=== PATIENT | male | born 1945 | race Caucasian/White ===

== ENCOUNTER 2019-04-02 10:28 | Emergency (ER) | payer OTHER ==
--- OUTSIDE RECORDS SUMMARY | 2019-04-02 10:49 | XMS REPORT | Clinical Summary ---
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 atorvastatin Take 80 mg by mouth 0 Active (LIPITOR) 80 MG nightly. tablet ezetimibe (ZETIA) Take 10 mg by mouth 0 Active 10 mg tablet nightly. ticagrelor Take 90 mg by mouth 0 Active (BRILINTA) 90 mg 2 (two) times a tablet day. alendronate Take 70 mg by mouth 0 Active (FOSAMAX) 70 MG every 7 days. On tablet .Take in the morning with a full glass of water on an empty stomach, do NOT take anything else by mouth or lie down for the next 30 min. CALCIUM CITRATE Take 1,200 mg by 0 Active ORAL mouth daily. multivit-min/folic/ Take 1 tablet by 0 Active vit K/lycop (MEN'S mouth daily. MULTIVITAMIN ORAL) docosahexanoic Take 1 capsule by 0 Active acid/epa (FISH OIL mouth daily. ORAL) acetaminophen Take 500 mg by 0 Active (TYLENOL) 500 MG mouth every 6 (six) tablet hours as needed for mild pain (back pain). aspirin (ECOTRIN) Take 81 mg by mouth 0 Active 81 MG enteric daily. coated tablet metoprolol Take 25 mg by mouth 0 Active succinate XL 2 (two) times a (TOPROL-XL) 25 mg day. 24 hr tablet carbidopa-levodopa Take 1 tablet by 0 Active (SINEMET) 25-100 mg mouth 2 (two) times per tablet a day. clopidogrel Take 75 mg by mouth 0 Discontinued (PLAVIX) 75 mg daily. 019 tablet gabapentin TK 1 C PO hs 5 Discontinued (NEURONTIN) 100 mg 8 019 capsule ibuprofen ibuprofen 600 mg 0 Discontinued (ADVIL,MOTRIN) 600 tablet 019 MG tablet aspirin (ECOTRIN) aspirin 81 mg tablet,delayed release 0 Discontinued 81 MG enteric Take 1 tablet every day by oral route. 019 coated tablet amoxicillin Take 1 capsule 0 Discontinued (AMOXIL) 500 MG every 8 hours by 019 capsule oral route for 7 days. cyclobenzaprine cyclobenzaprine 10 0 Discontinued (FLEXERIL) 10 mg mg tablet 019 tablet acetaminophen-codei Take 1 tablet by 15 tablet 0 ne (TYLENOL WITH mouth every 6 (six) 9 019 CODEINE #3) 300-30 hours as needed for mg per tablet moderate pain for up to 7 days. phenazopyridine Take 1 tablet (100 12 tablet 0 (PYRIDIUM) 100 MG mg total) by mouth 9 019 tablet 3 (three) times a day as needed for bladder spasms for up to 3 days. phenazopyridine Take 1 tablet (200 30 tablet 0 11/04/ (PYRIDIUM) 200 MG mg total) by mouth 9 019 tablet 3 (three) times a day for 3 days. gabapentin Take 100 mg by 0 Discontinued (NEURONTIN) 100 mg mouth 3 (three) 019 capsule times a day. metoprolol tartrate Take 25 mg by mouth 0 Discontinued (LOPRESSOR) 25 mg 2 (two) times a 019 tablet day. vitamin E acetate Take 1 tablet by 0 Discontinued (VITAMIN E ORAL) mouth daily. 019 phenazopyridine Take 1 tablet (200 30 tablet 0 03/19/ (PYRIDIUM) 200 MG mg total) by mouth 9 019 tablet 3 (three) times a day as needed for bladder spasms for up to 10 days. traMADol (ULTRAM) Take 1 tablet (50 30 tablet 0 50 mg tablet mg total) by mouth 9 019 every 6 (six) hours as needed for moderate pain for up to 10 days. Active Problems Problem Noted Date UTI (urinary tract infection) 03/12/2019 Chest pain at rest 01/29/2019 Hematuria 01/08/2018 Gross hematuria 2017 General weakness 10/25/2017 Prostate cancer 02/12/2017 Stenosis of carotid artery 12/28/2016 Encounters Date Type Specialty Care Team Description 03/18/2019 Surgery Urology Jana, CYSTOSCOPY, LEFT MD Dash RETROGRADE PYELOGRAM, LEFT URETERAL STENT EXCHANGE 03/18/2019 Anesthesia Event Urology Yoselin Hare MD 03/12/2019 - Hospital Encounter General Internal Jana, Acute cystitis without 03/19/2019 Medicine MD Dash hematuria 03/12/2019 Hospital Encounter Radiology Jana, Calculus of kidney MD Dash 03/12/2019 Hospital Encounter Radiology Jana, Hydronephrosis, MD Dash unspecified hydronephrosis type 03/12/2019 Orders Only Urology Jana, Acute cystitis without MD Dash hematuria (Primary Dx) 03/12/2019 Orders Only Urology Jana, Acute cystitis without MD Dash hematuria (Primary Dx) 03/12/2019 Transcribe Orders Access Butchon, Calculus of kidney MD Dash (Primary Dx) 03/12/2019 Transcribe Orders Access Jana, Hydronephrosis, MD Dash unspecified hydronephrosis type (Primary Dx) 02/25/2019 Anesthesia Event Urology Fela Layton APRN 02/25/2019 Surgery Urology Jana, CYSTOSCOPY, LEFT STENT MD Dash EXCHANGE 02/25/2019 Hospital Encounter Urology Dash Bates MD 02/20/2019 Pre-Admit Testing Pre-Admission Jana Preop examination Appointment Testing MD Dash (Primary Dx) 02/11/2019 Hospital Encounter Radiology Kar, Parkinson disease Avery Mcintyre MD ([facility]) 02/05/2019 Transcribe Orders Radiology Ryley Lakhani disease Avery Mcintyre MD ([facility]) (Primary Dx) 01/29/2019 - Hospital Encounter Cardiology Eadeh, Kia, Chest pain at rest (Primary Dx); 01/31/2019 Unstable angina (HCC) Monica Wynn MD 11/05/2018 Hospital Encounter Radiology Steven Bates MD 11/04/2018 Anesthesia Event Urology Martinez Moncada MD 11/04/2018 Surgery Urology Jana, CYSTOSCOPY, LEFT MD Dash FLEXIBLE URETEROSCOPY, LEFT STENT EXCHANGE 11/04/2018 Hospital Encounter Urology Dash Bates MD 10/22/2018 Anesthesia Event Urology Aisha Clinton, SYNTHETIC FILAMENT SPINNER 10/22/2018 Surgery Urology Jana, CYSTOSCOPY, LEFT MD Dash FLEXIBLE URETEROSCOPY, LEFT RGP AND LEFT STENT INSERTION 10/22/2018 Hospital Encounter Urology Dash Bates MD 10/17/2018 Pre-Admit Testing Pre-Admission Jana Preop examination ( Primary Dx); Appointment Testing MD Dash History of diabetes mellitus after 04/01/2018 Immunizations Name Dates Previously Given Next Due Pneumococcal Conjugate 13-Valent 02/14/2017 Family History Medical History Relation Name Comments Cancer Father Emphysema Father Heart disease Father Lung cancer Father Prostate cancer Father Rheumatic fever Father Cirrhosis Mother Relation Name Status Comments Father Mother Social History Tobacco Use Types Packs/Day Years Used Date Former Smoker Cigarettes 2 40 Quit: 2002 Smokeless Tobacco: Never Used Alcohol Use Drinks/Week oz/Week Comments No Sex Assigned at Date Recorded Not on file Job Start Date Occupation Industry Not on file Not on file Not on file Travel History Travel Start Travel End No recent travel history available. Last Filed Vital Signs Vital Sign Reading Time Taken Blood Pressure 140/67 03/19/2019 7:20 AM CDT Pulse 60 03/19/2019 7:30 AM CDT Temperature 36.8 C (98.3 F) 03/19/2019 7:20 AM CDT Respiratory Rate 18 03/19/2019 7:20 AM CDT Oxygen Saturation 96% 03/19/2019 7:20 AM CDT Inhaled Oxygen Concentration - - Weight 80.6 kg (177 lb 9.6 oz) 03/19/2019 6:15 AM CDT Height 177.8 cm (5' 10") 03/12/2019 7:42 PM CDT Body Mass Index 25.48 03/12/2019 7:42 PM CDT Plan of Treatment Health Maintenance Due Date Last Done Comments COLONOSCOPY SCREENING 1997 SHINGLES VACCINES (#1) 1997 INFLUENZA VACCINE 05/08/2019 65+ PNEUMOCOCCAL VACCINE Completed 02/14/2017, 02/13/2017, 10/08/2016 Implants Implanted Type Area Dipper Clock And Watch Hands Device Shelf Model / Serial Identifier Expiration / Lot Date Device Vasclr Clsr Baln Cath 10ml Lkng Syr 6fr 7fr Mynxgrip - [id number] Cardiovascular N/A: CARDINAL 12/05/2018 [id number] / Implanted: 12/28/2016 (Quantity not on file) Implants N/A [facility] / [id number] Stent Coronary Bare Metal Rebel Otw 3.00 Mm X 16 Mm - [id number] Coronary Stents N/A: BSC 04/06/2018 [id number] / Implanted: 12/28/2016 (Quantity not on file) N/A INTERVENTIONAL / CARDIOLOGY [id number] Bard Mesh Perfix Plugs Large Perfix Plug,1.6&Quot; X 1.90&Quot; (4.1cm X 4.8cm ) - [id number] IPM GRAFTS Right: Scotty [id number] / Implanted: Qty: 1 on 02/12/2017 by Dash Bates MD [employer] / Clip Ligtng Hem-O-Braxton Endoscpc Aplr Ply Lg - [id number] Surgical N/A: WECK [employer]URE [id number] / Implanted: Qty: 3 on 02/12/2017 by Dash Bates MD Implants; N/A SYSTEMS / Expanders; Extenders; Surgical Wires Kit Selnt Fibrin Humn Hmsts Surgy 5ml Evicel - [id number] Surgical N/A: ETHICON - [id number] / Implanted: Qty: 1 on 02/12/2017 by Dash Bates MD Implants; N/A / Expanders; Extenders; Surgical Wires Catheter Uretl 6/10fr 50cm Flx-Tp Dlmn Std Accs - [id number] Surgical N/A: [facility] [id number] / Implanted: Qty: 1 on 02/26/2018 by Dash Bates MD Implants; N/A / Expanders; Extenders; Surgical Wires Plug Hrnia Rpr Perfix Med 1.3x1.55in - [id number] Surgical Mesh Left: [employer] 06/04/2021 [id number] / Implanted: Qty: 1 on 02/12/2017 by Devora Chavira MD or Tissue Groin / [employer] Mesh Hrnia Rpr 2x12in Flat Shet Ppe Soft-Tissue Ventrl - [id number] Surgical Mesh N/A: [employer] 04/04/2021 [id number] / Implanted: Qty: 1 on 02/12/2017 by Devora Chavira MD or Tissue Groin / [employer] Stent Uretl Polrs Loop 6fr 26cm W/O Gw - [id number] Surgical Stents N/A: [facility] 07/09/2021 [id number] / Implanted: Qty: 1 on 10/22/2018 by Dash Bates MD N/A / [id number] Stent Uretl Filifm Dbl Pigtl 6fr 26cm Marie Blk - [id number] Surgical Stents N/ A: [facility] 08/15/2021 [id number] / Implanted: Qty: 1 on 11/04/2018 by Dash Bates MD N/A / [id number] Stent Uretl Filifm Dbl Pigtl 6fr 28cm Marie Blk - [id number] Surgical Stents N/ A: [facility] 12/27/2020 [id number] / Implanted: Qty: 1 on 02/25/2019 by Dash Bates MD N/A / [id number] Stent Uretl Filifm Dbl Pigtl 6fr 24cm Marie Blk - [id number] Surgical Stents N/ A: [facility] 01/30/2022 [id number] / Implanted: Qty: 1 on 03/18/2019 by Dash Bates MD N/A / [id number] Catheter Uretl 6fr 70cm Opn-End Rtrgd Pyelogram - [id number] [facility]rological [facility] [id number] / Implanted: Qty: 1 on 01/22/2018 by Dash Bates MD Implants or / Sets Stent Uretl S-Flx Kwrt Rtr-Inj Mltlen 6fr 22-32cm - [id number] Urological Left: [facility] 06/19/2020 [id number] / Implanted: Qty: 1 on 01/22/2018 by Dash Bates MD Implants or Ureter, / Sets [place] [id number] Stent Uretl S-Flx Kwrt Rtr-Inj Mltlen 6fr 22-32cm - [id number] Urological N/A : [facility] 01/15/2021 [id number] / Implanted: 02/26/2018 (Quantity not on file) Implants or N/A / Sets [id number] Procedures Procedure Name Priority Date/Time Associated Diagnosis Comments POC GLUCOSE Routine 03/19/2019 7:21 Results for this AM CDT procedure are in the results section. ESTIMATED GFR Routine 03/19/2019 6:25 Results for this AM CDT procedure are in the results section. BASIC METABOLIC Routine 03/19/2019 6:25 Results for this PANEL AM CDT procedure are in the results section. ESTIMATED GFR Routine 03/19/2019 4:00 Results for this AM CDT procedure are in the results section. BASIC METABOLIC Routine 03/19/2019 4:00 Results for this PANEL AM CDT procedure are in the results section. POC GLUCOSE Routine 03/18/2019 8:47 Results for this PM CDT procedure are in the results section. POC GLUCOSE Routine 03/18/2019 4:13 Results for this PM CDT procedure are in the results section. POC GLUCOSE Routine 03/18/2019 2:01 Results for this PM CDT procedure are in the results section. FL < 1 HOUR Routine 03/18/2019 1:47 Results for this PM CDT procedure are in the results section. CYSTO STENT 03/18/2019 1:30 Hydronephrosis INSERTION PM CDT Special Needs POSSIBLE EXTENDED RECOVERY NEEDED POC GLUCOSE Routine 03/18/2019 12:32 Results for this PM CDT procedure are in the results section. POC GLUCOSE Routine 03/18/2019 7:16 Results for this AM CDT procedure are in the results section. HC COMPLETE BLD COUNT Routine 03/18/2019 5:50 Results for this W/AUTO DIFF AM CDT procedure are in the results section. ESTIMATED GFR Routine 03/18/2019 5:50 Results for this AM CDT procedure are in the results section. BASIC METABOLIC PANEL Routine 03/18/2019 5:50 Results for this AM CDT procedure are in the results section. POC GLUCOSE Routine 03/18/2019 5:47 Results for this AM CDT procedure are in the results section. POC GLUCOSE Routine 03/17/2019 9:09 Results for this PM CDT procedure are in the results section. POC GLUCOSE Routine 03/17/2019 5:17 Results for this PM CDT procedure are in the results section. POC GLUCOSE Routine 03/17/2019 12:34 Results for this PM CDT procedure are in the results section. POC GLUCOSE Routine 03/17/2019 7:50 Results for this AM CDT procedure are in the results section. POC GLUCOSE Routine 03/16/2019 8:59 Results for this PM CDT procedure are in the results section. POC GLUCOSE Routine 03/16/2019 5:36 Results for this PM CDT procedure are in the results section. POC GLUCOSE Routine 03/16/2019 11:27 Results for this AM CDT procedure are in the results section. POC GLUCOSE Routine 03/16/2019 7:14 Results for this AM CDT procedure are in the results section. POC GLUCOSE Routine 03/15/2019 10:24 Results for this PM CDT procedure are in the results section. POC GLUCOSE Routine 03/15/2019 5:31 Results for this PM CDT procedure are in the results section. POC GLUCOSE Routine 03/15/2019 11:48 Results for this AM CDT procedure are in the results section. POC GLUCOSE Routine 03/15/2019 7:45 Results for this AM CDT procedure are in the results section. ESTIMATED GFR Routine 03/15/2019 2:45 Results for this AM CDT procedure are in the results section. HEMOGLOBIN A1C Routine 03/15/2019 2:45 Results for this AM CDT procedure are in the results section. BASIC METABOLIC PANEL Routine 03/15/2019 2:45 Results for this AM CDT procedure are in the results section. POC GLUCOSE Routine 03/14/2019 9:06 Results for this PM CDT procedure are in the results section. POC GLUCOSE Routine 03/14/2019 5:23 Results for this PM CDT procedure are in the results section. POC GLUCOSE Routine 03/14/2019 11:34 Results for this AM CDT procedure are in the results section. ESTIMATED GFR Routine 03/14/2019 3:56 Results for this AM CDT procedure are in the results section. HC COMPLETE BLD COUNT Routine 03/14/2019 3:56 Results for this W/AUTO DIFF AM CDT procedure are in the results section. BASIC METABOLIC PANEL Routine 03/14/2019 3:56 Results for this AM CDT procedure are in the results section. GRAM STAIN Routine 03/13/2019 2:17 Results for this AM CDT procedure are in the results section. URINE CULTURE Routine 03/13/2019 2:17 Results for this AM CDT procedure are in the results section. URINALYSIS SCREEN AND Routine 03/13/2019 1:50 Results for this MICROSCOPY, WITH AM CDT procedure are in REFLEX TO CULTURE the results section. CBC HEMOGRAM Routine 03/12/2019 9:03 Results for this PM CDT procedure are in the results section. ESTIMATED GFR Routine 03/12/2019 6:49 Results for this PM CDT procedure are in the results section. COMPREHENSIVE Routine 03/12/2019 6:49 Results for this METABOLIC PANEL PM CDT procedure are in the results section. US RENAL Routine 03/12/2019 4:49 Calculus of kidney Results for this PM CDT procedure are in the results section. XR KUB KIDNEY URETER Routine 03/12/2019 1:49 Hydronephrosis, Results for this BLADDER PM CDT unspecified procedure are in hydronephrosis type the results section. POC GLUCOSE Routine 02/25/2019 2:21 Results for this PM CDT procedure are in the results section. IN AN ELECTIVE Routine 02/25/2019 1:45 SUPRAGLOTTIC AIRWAY PM CDT Procedure Note - Yoni Salomon MD - 02/25/2019 1:45 PM CDT Airway Date/Time: 02/25/2019 1:42 PM Performed by: Yoni Salomon MD Authorized by: Yoni Salomon MD Location: OR Urgency: Elective Difficult Airway: No Performed by: anesthesiologist Preoxygenated with 100% O2: Yes C-spine Precautions Maintained Throughout: Yes Mask Ventilation: Easy mask Final Airway Type: Supraglottic airway Final LMA: I-Gel LMA Size: 4 Number of Attempts at Approach: 1 CYSTO STENT INSERTION 02/25/2019 1:00 Hydronephrosis PM CDT POC GLUCOSE Routine 02/25/2019 11:14 Results for this AM CDT procedure are in the results section. URINE CULTURE Routine 02/20/2019 8:11 Results for this PM CDT procedure are in the results section. GRAM STAIN Routine 02/20/2019 8:11 Results for this PM CDT procedure are in the results section. ECG PRE/POST OP Routine 02/20/2019 5:18 Preop examination Results for this PM CDT procedure are in the results section. ESTIMATED GFR Routine 02/20/2019 4:58 Results for this PM CDT procedure are in the results section. URINALYSIS SCREEN AND Routine 02/20/2019 4:58 Preop examination Results for this MICROSCOPY, WITH PM CDT procedure are in REFLEX TO CULTURE the results section. CBC HEMOGRAM Routine 02/20/2019 4:58 Preop examination Results for this PM CDT procedure are in the results section. TYPE AND SCREEN Routine 02/20/2019 4:58 Preop examination Results for this PM CDT procedure are in the results section. PARTIAL THROMBOPLASTIN Routine 02/20/2019 4:58 Preop examination Results for this TIME (PTT) PM CDT procedure are in the results section. PROTHROMBIN TIME WITH Routine 02/20/2019 4:58 Preop examination Results for this INR PM CDT procedure are in the results section. COMPREHENSIVE Routine 02/20/2019 4:58 Preop examination Results for this METABOLIC PANEL PM CDT procedure are in the results section. NM BRAIN SPECT W I 123 Routine 02/11/2019 1:22 Parkinson disease Results for this DATSCAN PM CDT (HCC) procedure are in the results section. POC GLUCOSE Routine 01/31/2019 11:51 Results for this AM CDT procedure are in the results section. POC GLUCOSE Routine 01/31/2019 7:40 Results for this AM CDT procedure are in the results section. ANTI XA, Timed 01/31/2019 4:20 Results for this UNFRACTIONATED AM CDT procedure are in the results section. CBC HEMOGRAM Routine 01/31/2019 4:20 Results for this AM CDT procedure are in the results section. ESTIMATED GFR Routine 01/31/2019 4:00 Results for this AM CDT procedure are in the results section. BASIC METABOLIC PANEL Routine 01/31/2019 4:00 Results for this AM CDT procedure are in the results section. POC GLUCOSE Routine 01/30/2019 9:15 Results for this PM CDT procedure are in the results section. ANTI XA, Routine 01/30/2019 8:45 Results for this UNFRACTIONATED PM CDT procedure are in the results section. POC GLUCOSE Routine 01/30/2019 5:58 Results for this PM CDT procedure are in the results section. ANTI XA, Routine 01/30/2019 1:30 Results for this UNFRACTIONATED PM CDT procedure are in the results section. POC GLUCOSE Routine 01/30/2019 12:19 Results for this PM CDT procedure are in the results section. TROPONIN Routine 01/30/2019 8:44 Results for this AM CDT procedure are in the results section. ECG 12-LEAD STAT 01/30/2019 8:14 Results for this AM CDT procedure are in the results section. POC GLUCOSE Routine 01/30/2019 7:55 Results for this AM CDT procedure are in the results section. CBC HEMOGRAM Routine 01/30/2019 5:45 Results for this AM CDT procedure are in the results section. ESTIMATED GFR Routine 01/30/2019 4:00 Results for this AM CDT procedure are in the results section. BASIC METABOLIC PANEL Routine 01/30/2019 4:00 Results for this AM CDT procedure are in the results section. ANTI XA, Routine 01/30/2019 3:45 Results for this UNFRACTIONATED AM CDT procedure are in the results section. TROPONIN Timed 01/30/2019 12:00 Results for this AM CDT procedure are in the results section. ECG 12-LEAD Routine 01/29/2019 9:40 Results for this PM CDT procedure are in the results section. POC GLUCOSE Routine 01/29/2019 9:20 Results for this PM CDT procedure are in the results section. ANTI XA, Routine 01/29/2019 8:20 Results for this UNFRACTIONATED PM CDT procedure are in the results section. PARTIAL THROMBOPLASTIN Routine 01/29/2019 8:20 Results for this TIME (PTT) PM CDT procedure are in the results section. TROPONIN Timed 01/29/2019 6:00 Results for this PM CDT procedure are in the results section. XR CHEST 1 VW PORTABLE Routine 01/29/2019 5:23 Results for this PM CDT procedure are in the results section. POC GLUCOSE Routine 01/29/2019 5:07 Results for this PM CDT procedure are in the results section. ECHOCARDIOGRAM 2D Routine 01/29/2019 4:30 Results for this COMPLETE W MMODE PM CDT procedure are in SPECTRAL COLOR DOPPLER the results (68519) section. IN CRITICAL CARE, E/M Routine 01/29/2019 1:09 Results for this 30-74 MINUTES PM CDT procedure are in the results section. ESTIMATED GFR STAT 01/29/2019 11:46 Results for this AM CDT procedure are in the results section. PROTHROMBIN TIME WITH STAT 01/29/2019 11:46 Results for this INR AM CDT procedure are in the results section. PARTIAL THROMBOPLASTIN STAT 01/29/2019 11:46 Results for this TIME (PTT) AM CDT procedure are in the results section. B NATRIURETIC PEPTIDE STAT 01/29/2019 11:46 Results for this AM CDT procedure are in the results section. TROPONIN STAT 01/29/2019 11:46 Results for this AM CDT procedure are in the results section. COMPREHENSIVE STAT 01/29/2019 11:46 Results for this METABOLIC PANEL AM CDT procedure are in the results section. HC COMPLETE BLD COUNT STAT 01/29/2019 11:46 Results for this W/AUTO DIFF AM CDT procedure are in the results section. ECG 12-LEAD STAT 01/29/2019 11:22 Results for this AM CDT procedure are in the results section. POC GLUCOSE Routine 11/04/2018 9:37 Results for this AM YARN WEIGHER procedure are in the results section. FL < 1 HOUR Routine 11/04/2018 9:23 Pain Results for this AM [facility]ARN WEIGHER procedure are in the results section. IN AN ELECTIVE Routine 11/04/2018 8:49 SUPRAGLOTTIC AIRWAY AM YARN WEIGHER Procedure Note - Isaac Quevedo CRNA - 11/04/2018 8:49 AM YARN WEIGHER ANESTHESIA INTUBATION Date/Time: 11/04/2018 8:49 AM Performed by: Isaac Quevedo CRNA Authorized by: Martinez Moncada MD Location: OR Urgency: Elective Difficult Airway: No Resident/PRESSURE STEAMER TENDER/AA: Isaac Quevedo CRNA Performed by: resident/PRESSURE STEAMER TENDER/AA Preoxygenated with 100% O2: Yes C-spine Precautions Maintained Throughout: Yes Mask Ventilation: Not attempted Final Airway Type: Supraglottic airway Final LMA: Classic LMA Size: 5 Number of Attempts at Approach: 1 CYSTO WITH URETEROSCOPY 11/04/2018 8:30 AM YARN WEIGHER Calculus of ureter Special Needs TF 0830 REQ 0730 START POC GLUCOSE Routine 11/04/2018 6:51 AM YARN WEIGHER POC GLUCOSE Routine 10/22/2018 1:35 PM YARN WEIGHER IN AN ELECTIVE SUPRAGLOTTIC Routine 10/22/2018 1:03 PM YARN WEIGHER AIRWAY Procedure Note - Stacey Melendez CRNA - 10/22/2018 1:03 PM YARN WEIGHER ANESTHESIA INTUBATION Date/Time: 10/22/2018 12:57 PM Performed by: Stacey Melendez CRNA Authorized by: Christopher Prado MD Location: OR Urgency: Elective Difficult Airway: No Anesthesiologist: Christopher Prado MD Resident/PRESSURE STEAMER TENDER/AA: Stacey Melendez CRNA Performed by: anesthesiologist Preoxygenated with 100% O2: Yes C-spine Precautions Maintained Throughout: Yes Mask Ventilation: Easy mask Final Airway Type: Supraglottic airway Final LMA: Ambu LMA Size: 5 Number of Attempts at Approach: 1 Eyes taped at LOC prior to airway manipulation. LMA inserted with ease. Lips and teeth intact per preop CYSTO, URETEROSCOPY 10/22/2018 12:30 PM YARN WEIGHER Calculus of ureter Hydronephrosis Case Notes REQ 1200 START, R/S PER AMARIS 10/17 KMM Special Needs REQ 1200 START POC GLUCOSE Routine 10/22/2018 10:49 Results for this AM [facility] WEIGHER procedure are in the results section. ECG PRE/POST OP Routine 10/17/2018 3:33 Preop examination Results for this PM YARN WEIGHER History of diabetes procedure are in mellitus the results section. URINE CULTURE Routine 10/17/2018 3:15 Results for this PM [facility]ARN WEIGHER procedure are in the results section. ESTIMATED GFR Routine 10/17/2018 3:11 Results for this PM [facility] WEIGHER procedure are in the results section. PARTIAL THROMBOPLASTIN Routine 10/17/2018 3:11 Preop examination Results for this TIME (PTT) PM YARN WEIGHER procedure are in the results section. PROTHROMBIN TIME WITH Routine 10/17/2018 3:11 Preop examination Results for this INR PM [facility]ARN WEIGHER procedure are in the results section. URINALYSIS SCREEN AND Routine 10/17/2018 3:11 Preop examination Results for this MICROSCOPY, WITH REFLEX PM [facility] WEIGHER procedure are in TO CULTURE the results section. CBC HEMOGRAM Routine 10/17/2018 3:11 Preop examination Results for this PM [facility]ARN WEIGHER procedure are in the results section. HEMOGLOBIN A1C Routine 10/17/2018 3:11 Preop examination Results for this PM YARN WEIGHER History of diabetes procedure are in mellitus the results section. COMPREHENSIVE METABOLIC Routine 10/17/2018 3:11 Preop examination Results for this PANEL PM YARN WEIGHER History of diabetes procedure are in mellitus the results section. after 04/01/2018 Results POC glucose (03/19/2019 7:21 AM CDT)Only the most recent of36 resultswithin the time period is included. [facility] POC glucose 128 (H) 65 - 99 mg/dL [facility] Comment: HOSPITAL No Action Needed [facility] Notified RN Meter ID: [id number] Neuro Urologist: Junior Rosado Specimen Performing Organization Address City/[facility] Cent[facility] Phone Number [facility] DEPARTMENT OF PATHOLOGY AND [address] [place] [address] Estimated GFR (03/19/2019 6:25 AM CDT)Only the most recent of11 resultswithin the time period is included. [facility] Estimated GFR >=90 mL/min/1.73 [facility] Comment: [address] CatergoryUnitsInterpretation G1 >=90 Normal or high G2 60-89Mildly decreased P3v72-85Syjviy to moderately decreased R2x14-81Wbgdhrmfpi to severely decreased G4 15-29Severely decreased G5 <15Kidney failure The eGFR was calculated using the Chronic Kidney Disease Epidemiology Collaboration (CKD-EPI) equation. Interpretation is based on recommendations of the National Kidney Foundation-Kidney Disease Outcomes Quality Initiative (NKF-KDOQI) published in 2014. Specimen Plasma specimen Performing Organization Address City/[facility] Cent[facility]ode Phone Number [facility] DEPARTMENT OF PATHOLOGY AND [address] [place], [place] [id number] Basic metabolic panel (03/19/2019 6:25 AM CDT)Only the most recent of7 resultswithin the time period is included. [facility] Sodium 136 135 - 148 mEq/L [facility] Potassium 4.0 3.5 - 5.0 mEq/L [facility] Chloride 100 98 - 112 mEq/L [facility] CO2 24 24 - 31 mEq/L [facility] Anion gap 12@ANIO 7 - 15 mEq/L [facility] BUN 16 8 - 23 mg/dL [facility] Creatinine 0.62 (L) 0.70 - 1.20 mg/dL [facility] Glucose 106 (H) 65 - 99 mg/dL [facility] Calcium 9.1 8.8 - 10.2 mg/dL [facility] Specimen Plasma specimen Performing Organization Address City/State/Zipcode Phone Number [facility] DEPARTMENT OF PATHOLOGY AND [address] [place] [address] GENOMIC MEDICINE [facility] [address] [place] [address] [place] < 1 Hour (03/18/2019 1:47 PM CDT)Only the most recent of2 resultswithin the time period is included. Specimen Narrative Performed At IMPRESSION:C-arm Fluoroscopy under 1 hour was provided in the OR for [facility] the referring physician.A radiologist was not present during the procedure. Refer to the Operative report issued by the performing provider for procedure details. Procedure Note [facility], Radiology Results Incoming - 03/18/2019 2:29 PM CDT IMPRESSION: C-arm Fluoroscopy under 1 hour was provided in the OR for the referring physician. A radiologist was not present during the procedure. Refer to the Operative report issued by the performing provider for procedure details. Performing Organization Address City/[facility]/Zipcode Phone Number [facility] [address] [place] [address] CBC with platelet and differential (03/18/2019 5:50 AM CDT)Only the most recent of3 resultswithin the time period is included. WBC 4.11 (L) 4.50 - 11.00 [facility] k/uL [facility] RBC 3.46 (L) 4.40 - 6.00 [facility] m/uL [facility] HGB 10.5 (L) 14.0 - 18.0 [facility] g/dL [facility] HCT 33.8 (L) 41.0 - 51.0 % [facility] MCV 97.7 82.0 - 100.0 [facility] MCH 30.3 27.0 - 34.0 pg [facility] MCHC 31.1 31.0 - 37.0 [facility] g/dL [facility] RDW - SD 52.9 37.0 - 55.0 fL [facility] MPV 9.9 8.8 - 13.2 fL [facility] Platelet count 195 150 - 400 k/uL [facility] Nucleated RBC 0.00 /100 WBC [facility] Neutrophils 62.8 39.0 - 69.0 % [facility] Lymphocytes 16.8 (L) 25.0 - 45.0 % [facility] Monocytes 14.8 (H) 0.0 - 10.0 % [facility] Eosinophils 4.4 0.0 - 5.0 % [facility] Basophils 0.5 0.0 - 1.0 % [facility] Immature granulocytes 0.7Comment: 0.0 - 1.0 % [facility] "Immature HOSPITAL granulocytes" (promyelocytes , myelocytes, metamyelocytes ) Specimen Blood Performing Organization Address City/State/Zipcode Phone Number [facility] DEPARTMENT OF PATHOLOGY AND [address] [place] [address] Hemoglobin A1c (03/15/2019 2:45 AM CDT)Only the most recent of2 resultswithin the time period is included. Hemoglobin A1C 6.3 (H) 4.0 - 5.6 % [facility] Comment: HOSPITAL HbA1c cutoffs for diagnosing diabetes: 4.0% - 5.6%=normal 5.7% - 6.4%=increased risk for diabetes (prediabetes) >=6.5%=diabetes Goals for glycemic control (ADA 2016) < 7.0%Target for non adults with diabetes. More or less stringent targets may be appropriate for individual patients. <7.5% Target for Children and adolescents with type 1 diabetes. Specimen Blood Performing Organization Address City/[facility] Centercode Phone Number [facility] DEPARTMENT OF PATHOLOGY AND [address] [place] [address] Gram stain (03/13/2019 2:17 AM CDT)Only the most recent of2 resultswithin the time period is included. Gram stain result Rare WBC's [facility] No organisms seen HOSPITAL Comment: Specimen Information Specimen Source: Urine Specimen Site: Clean catch Specimen Urine Performing Organization Address City/State/Zipcode Phone Number [facility] DEPARTMENT OF PATHOLOGY AND [address] [place] [address] Urine culture (03/13/2019 2:17 AM CDT)Only the most recent of3 resultswithin the time period is included. Urine culture Mixed salvatore <=10-3 col/cc [facility] isolate Comment: HOSPITAL Specimen Information Specimen Source: Urine Specimen Site: Clean catch Specimen Urine Performing Organization Address City/State/Zipcode Phone Number [facility] DEPARTMENT OF PATHOLOGY AND [address] [place] [phone] Urinalysis screen and microscopy, with reflex to culture (03/13/2019 1:50 AM CDT)Only the most recent of3 resultswithin the time period is included. Specimen site Clean catch [facility] Color, UA Straw [facility] Appearance, UA Clear [facility] Specific gravity, UA 1.015 1.001 - 1.035 [facility] pH, UA 7.0 5.0 - 8.5 [facility] Protein, UA 1+ (A) Negative [facility] Glucose, UA Negative Negative [facility] Ketones, UA Negative Negative [facility] Bilirubin, UA Negative Negative [facility] Blood, UA Large (A) Negative [facility] Nitrite, UA Positive (A) Negative [facility] Urobilinogen, UA <2.0 <2.0 [facility] Leukocyte esterase, Moderate (A) Negative [facility] Epithelial cells, UA <1 /HPF [facility] WBC, UA 74 (H) 0 - 1 /HPF [facility] RBC, UA >180 (H) 0 - 5 /HPF [facility] Bacteria, UA Few None seen [facility] Yeast, UA None seen [facility] Yeast with None seen [facility] pseudohyphae, [facility] Calcium oxalate Few [facility] crystals, HOSPITAL Specimen Urine Performing Organization Address City/State/Zipcode Phone Number [facility] DEPARTMENT OF PATHOLOGY AND [address] [place] [phone] CBC hemogram (03/12/2019 9:03 PM CDT)Only the most recent of5 resultswithin the time period is included. WBC 5.87 4.50 - 11.00 k/uL [facility] RBC 3.13 (L) 4.40 - 6.00 m/uL [facility] HGB 9.7 (L) 14.0 - 18.0 g/dL [facility] HCT 30.2 (L) 41.0 - 51.0 % [facility] MCV 96.5 82.0 - 100.0 fL [facility] MCH 31.0 27.0 - 34.0 pg [facility] MCHC 32.1 31.0 - 37.0 g/dL [facility] RDW - SD 52.5 37.0 - 55.0 fL [facility] MPV 9.6 8.8 - 13.2 fL [facility] Platelet count 206 150 - 400 k/uL [facility] Nucleated RBC 0.00 /100 WBC [facility] Specimen Blood Performing Organization Address City/State/Zipcode Phone Number [facility] DEPARTMENT OF PATHOLOGY AND [address] [place] [address] [address] [address] Comprehensive metabolic panel (03/12/2019 6:49 PM CDT)Only the most recent of4 resultswithin the time period is included. Sodium 140 135 - 148 [facility] mEq/L [facility] Potassium 4.4 3.5 - 5.0 [facility] mEq/L [facility] Chloride 102 98 - 112 mEq/L [facility] CO2 23 (L) 24 - 31 mEq/L [facility] Anion gap 15@ANIO 7 - 15 mEq/L [facility] BUN 23 8 - 23 mg/dL [facility] Creatinine 0.60 (L) 0.70 - 1.20 [facility] mg/dL HOSPITAL Glucose 174 (H) 65 - 99 mg/dL [facility] Calcium 9.0 8.8 - 10.2 [facility] mg/dL [facility] Protein 6.9 6.3 - 8.3 g/dL [facility] Comment: HOSPITAL [place] 4.6-7.0 g/dL 1 week 4.4-7.6 g/dL 7 months-1year5.1-7.3 g/dL 1-2 years5.6-7.5 g/dL >3 years6.0-8.0 g/dL 18-150 6.3-8.3 g/dL Albumin 3.4 (L) 3.5 - 5.0 g/dL [facility] A/G ratio 1.0 0.7 - 3.8 [facility] Alkaline phosphatase 75 40 - 129 U/L [facility] AST 17 10 - 50 U/L [facility] ALT 12 5 - 50 U/L [facility] Total bilirubin <0.2 0.0 - 1.2 [facility] mg/dL HOSPITAL Specimen Plasma specimen Performing Organization Address City/[facility]/Zipcode Phone Number [facility] DEPARTMENT OF PATHOLOGY AND [address] [place] [address] GENOMIC MEDICINE [facility] [address] [place] [address] US Renal (03/12/2019 4:49 PM CDT) Specimen Narrative Performed At EXAMINATION:US RENAL [facility] CLINICAL HISTORY:N20.0 Calculus of kidney, n13.30 COMPARISON:October 29, 2017 ultrasound and January 09, 2018 CT Impression: Transverse and longitudinal sonographic images were obtained through the renal fossae and bladder. 1. The right kidney cqgywluc45.6 x 5.5 x 4.8 cm and left kidney 11.7 x 5.7 x 5.4 cm.. 2.Bilateral renal cysts demonstrates simple characteristics are stable. Multiple bilateral renal calculi are likewise grossly stable as well. A left ureteral stent is partially imaged with minimal left hydronephrosis which has significantly decreased since the January 09, 2018 CT scan. There is no right hydronephrosis. 3.The bladder appears grossly normal. [facility]-[id number] Procedure Note [facility], Radiology Results Incoming - 03/12/2019 4:56 PM CDT EXAMINATION: US RENAL CLINICAL HISTORY: N20.0 Calculus of kidney, n13.30 COMPARISON: October 29, 2017 ultrasound and January 09, 2018 CT Impression: Transverse and longitudinal sonographic images were obtained through the renal fossae and bladder. 1. The right kidney measures 12.6 x 5.5 x 4.8 cm and left kidney 11.7 x 5.7 x 5.4 cm.. 2. Bilateral renal cysts demonstrates simple characteristics are stable. Multiple bilateral renal calculi are likewise grossly stable as well. A left ureteral stent is partially imaged with minimal left hydronephrosis which has significantly decreased since the January 09, 2018 CT scan. There is no right hydronephrosis. 3. The bladder appears grossly normal. [facility]-[id number] Performing Organization Address City/[facility] Phone Number [facility] [address] [place] [address] XR Kub Kidney Ureter Bladder (03/12/2019 1:49 PM CDT) Specimen Narrative Performed At EXAMINATION: XR KUB KIDNEY URETER BLADDER [facility] INDICATION: N13.30 Unspecified hydronephrosis, n20.0n13.30 COMPARISON: 03/19/2018 IMPRESSION: A left ureteral stent is in place. No calculi are visualized over the renal shadows or expected locations of the ureters. There are right upper quadrant surgical clips. A screw overlies the sacrum. Scattered degenerative osseous changes. [id number]-[id number] Procedure Note Hm Interface, Radiology Results Incoming - 03/12/2019 3:22 PM CDT EXAMINATION: XR KUB KIDNEY URETER BLADDER INDICATION: N13.30 Unspecified hydronephrosis, n20.0 n13.30 COMPARISON: 03/19/2018 IMPRESSION: A left ureteral stent is in place. No calculi are visualized over the renal shadows or expected locations of the ureters. There are right upper quadrant surgical clips. A screw overlies the sacrum. Scattered degenerative osseous changes. OPC-[id number] Performing Organization Address [facility] Centercout Phone Number [facility] [address] [place] [address] ECG Pre/Post Op (02/20/2019 5:18 PM CDT)Only the most recent of2 resultswithin the time period is included. Ventricular rate 60 [facility] Atrial rate 60 [facility] IN interval 188 [facility] QRSD interval 94 [facility] QT interval 502 [facility] QTC interval 502 [facility] P axis 1 69 [facility] QRS axis 1 58 [facility] T wave axis 118 [facility] EKG impression Normal sinus rhythm-ST & [facility] T wave abnormality, consider anterolateral ischemia-Prolonged QT-Abnormal ECG- Specimen Narrative Performed At Performing Organization Address [facility] Centercode Phone Number [facility] [employer] [address] [place] [address] Partial thromboplastin time, activated (02/20/2019 4:58 PM CDT)Only the most recent of4 resultswithin the time period is included. PTT 33.4 23.0 - 36.0 [facility] Comment: [facility] PTT therapeutic range for unfractionated heparin is 61.0-112.0 seconds which corresponds to Anti-Xa 0.3-0.7 U/ml. Specimen Blood Performing Organization Address City/[facility]ercode Phone Number [facility] DEPARTMENT OF PATHOLOGY AND [address] [place] [address] Prothrombin time with INR (02/20/2019 4:58 PM CDT)Only the most recent of3 resultswithin the time period is included. Pathologist [facility] Prothrombin time 13.4 11.5 - 14.5 [facility] INR 1.0 [facility] Comment: SIKHISM [facility] International Normalized Ratio (INR) is a therapeutic HOSPITAL monitoring tool for patients who are stable on oral anticoagulant therapy. An INR of 2.0-3.0 is suggested for deep vein thrombosis/pulmonary embolism. Specimen Blood Performing Organization Address City/[facility]ode Phone Number [facility] DEPARTMENT OF PATHOLOGY AND [address] [place] [address] Type and screen (02/20/2019 4:58 PM CDT) Pathologist [facility] ABO grouping O [facility] Rh type NEG [facility] Antibody screen (gel) NEG [facility] Specimen Blood Performing Organization Address City/[facility]ode Phone Number [facility] DEPARTMENT OF PATHOLOGY AND [address] [place] [address] NM Brain Spect W I 123 Datscan (02/11/2019 1:22 PM CDT) Specimen Narrative Performed At Procedure:NM BRAIN SPECT W I 123 DATSCAN [facility] Clinical History:G20 Parkinson's disease, PARKINSON Technique: The patient was given 3 drops of Lugol's solution orally to protect the thyroid. The patient was then injected with 5 mCi of [id number] intravenously. SPECT imaging of the brain was performed approximately 4 hours later. Findings: Markedly reduced uptake bilaterally in putamen, right worse then left. Normal uptake in the left caudate with borderline normal uptake in the right caudate. Impression: Abnormal DaTscan. 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 [facility]-[id number] Procedure Note Hm Interface, Radiology Results Incoming - 02/11/2019 2:13 PM CDT Procedure: NM BRAIN SPECT W I 123 DATSCAN Clinical History: G20 Parkinson's disease, PARKINSON Technique: The patient was given 3 drops of Lugol's solution orally to protect the thyroid. The patient was then injected with 5 mCi of [id number] intravenously. SPECT imaging of the brain was performed approximately 4 hours later. Findings: Markedly reduced uptake bilaterally in putamen, right worse then left. Normal uptake in the left caudate with borderline normal uptake in the right caudate. Impression: Abnormal DaTscan. 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 [facility]-[id number] Performing Organization Address City/[facility]out Phone Number [address] [address] Anti Xa, unfractionated (01/31/2019 4:20 AM CDT)Only the most recent of5 resultswithin the time period is included. [facility] Anti Xa, 0.33Comment: 0.30 - 0.70 [facility] Therapeutic Range: U/mL SIKHISM 0.30 - 0.70 U/mL HOSPITAL Specimen Blood Performing Organization Address [facility] Phone Number [facility] DEPARTMENT OF PATHOLOGY AND [address] [place] [id number] [place] [id number] Troponin (01/30/2019 8:44 AM CDT)Only the most recent of4 resultswithin the time period is included. [facility] Troponin <0.30 0.000 - 0.300 [facility] Comment: ng/mL [facility] changed methodology effective: 02/11/2019 at 10:00 am The new method has a 99th percentile cutoff of 0.040 ng/mL Specimen Plasma specimen Performing Organization Address [facility] Phone Number [facility] DEPARTMENT OF PATHOLOGY AND [address] [place] [id number] [place] [phone] ECG 12 lead (01/30/2019 8:14 AM CDT)Only the most recent of3 resultswithin the time period is included. Ventricular rate 58 [facility] Atrial rate 58 [facility] IN interval 198 [facility] QRSD interval 94 [facility] QT interval 522 [facility] QTC interval 512 [facility] P axis 1 75 [facility] QRS axis 1 22 [facility] T wave axis 161 [facility] EKG impression Sinus bradycardia with premature atrial complexes-Septal infarct (cited on or before 29-JAN-2019)-T wave abnormality, consider anterolateral ischemia-Prolonged QT-Abnormal ECG-In automated comparison with ECG of 29-JAN-2019 21:40,-premature atrial [facility] MUSE complexes are now present-Serial changes of Septal infarct present- Specimen Narrative Performed At Performing Organization Address [facility] Centercode Phone Number [facility] MUSE [address] [place] [address] XR Chest 1 Vw Portable (01/29/2019 5:23 PM CDT) Specimen Narrative Performed At EXAMINATION:XR CHEST 1 VW PORTABLE [facility] CLINICAL HISTORY:73 years Male chest painsob [facility] COMPARISON:10/25/2017 IMPRESSION: 1.Heart size and central vasculature are normal. 2.Mild bibasilar atelectasis. No consolidation or effusion. 3.No acute osseous abnormality. [facility]-[id number] Procedure Note Interface, Radiology Results Incoming - 01/29/2019 6:11 PM CDT EXAMINATION: XR CHEST 1 VW PORTABLE CLINICAL HISTORY:73 years Male chest pain sob [facility] COMPARISON: 10/25/2017 IMPRESSION: 1. Heart size and central vasculature are normal. 2. Mild bibasilar atelectasis. No consolidation or effusion. 3. No acute osseous abnormality. [facility]-[id number] Performing Organization Address [facility] Centercode Phone Number [facility] [address] [place] [address] Echocardiogram complete w contrast and 3D if needed (01/29/2019 4:30 PM CDT) Specimen Narrative Performed At [facility] Echocardiography Report [id number] [address] Pat.Name:ROSLYN TIAN.ID:[id number] .Date: 01/29/2019 Refer.MD:MONICA WYNN MD Exam Time: 3:21:00 PMStudy Type:Routine Echo Height:68inWeight: 191lb BSA: 2.01 m2 DOBAge:1945,73Y Sex: MALEBP:121/61 HR:86 bpmSonogrphr: Manoj GARRISON Pat. Stat.:Inpatient Room:ED 22 Study Status:Final Echo Event ID:[id number] Order ID:[id number] Reason for Study:stemi last week, chest pain History / Clinical:Cancer, Coronary Artery Disease, Diabetes, Hyperlipidemia Procedures:2D Echo, Colorflow Doppler, Intravenous Optison Contrast SUMMARY: LV systolic function is mildly depressed, with biplane LVEF=43%. Regional wall motion abnormalities present.Akinetic apex noted, without thrombus by contrast echo. Diastolic dysfunction Grade II (Moderate): Impaired relaxation with normal LV filling pressures. Estimated PA systolic pressure is 32 mmHg, assuming a mean RAP of 5 mmHg. FINDINGS: LV: LV size is normal. Concentric left ventricular remodeling. LVEF is mildly depressed. Regional wall motion abnormalitiespresent. Biplane LVEF=43%. RV: RV size is normal. RV systolic function is normal. LA: LA volume is mildly enlarged. RA: RA volume is normal. AO: Aortic root diameter is normal in size. Calcifications in ascendingaorta. IRMA: Trace anterior pericardial effusion. AV: Mild thickening of AV leaflets. A trace of aortic regurgitation. MV: Mild thickening of mitral leaflets. Thickened and calcified chordae. PV: Pulmonic valve not well seen. TV: No structural TV abnormalities noted. A trace of tricuspid regurgitation Gonzalez: Diastolic dysfunction Grade I (Mild): Impaired relaxation withnormal LV filling pressures. Other:Estimated PA systolic pressure is 32 mmHg, assuming a mean RAPof 5 mmHg. MEASUREMENTS: 2D Parasternal [place] Ds3 cmIVSd 1.2 cm Ao An2.4 cmLVPWd1.2 cm Ao Rtd 3.8 cmIndex1.9 cm/m LV Nmsw224.3 g(122-174) LVIDd4.3 cmIndex2.1 cm/m LVM Index 91.2 g/m2 LVIDs3.4 cmRWT0.6 LV%fs 22.1 % LVOT 2 cm LV EF Biplane SSEOD728.1 ml (65-193) Index74.7 ml/m HR68 bpm LVESV 85.5 krYcbjc50.5 ml/m LV CO4.4 l/min LV SV 64.6 mlLV CI2.2 l/m/m2 LV EF 43 %(63-77) LA Sng Plane LA Area 21.9 cm2(8.8-23.4) LA Vol73.1 ml Index36.4 ml/m LA LngAx 5.2 cm RA Sng Plane RA Area 19.8 cm2(8.3-19.5) RA Vol58.9 ml Index29.3 ml/m RA LngAx 5.7 cm DOPPLER LVOT Stroke Vol LVOT 2 cmLVOT CO4 l/min LVOT TVI19.1 cmLVOT CI2 l/m/m2 LVOT Tm267 libcZD84 bpm LVOT SV 60 ml TV Pressure Gradient TV PkVel 260.2 cm/sTV PG 27.1 mmHg WALL MOTION: RESTING WALL MOTION: Apical Anterior, Apical Septal, Apical Inferior, Apical Lateral, Apical guaman are akinetic.Mid Anterior, Mid Anteroseptal, Mid Inferoseptal, Mid Anterolateral guaman are hypokinetic. Normal in all other guaman. Wall Index=1.8 Signed 01/30/2019 02:44 PM Humza Martinez M.D. Procedure Note Interface, Radiology Results In - 01/30/2019 2:44 PM CDT Echocardiography Report [address] [place] [address] Pat.Name: ROSLYN TIAN Pat.ID: [id number] .Date: 01/29/2019 Refer.MD: MONICA WYNN MD Exam Time: 3:21:00 PM Study Type:Routine Echo Height: 68in Weight: 191lb BSA: 2.01 m2 Age: 1 1945,73Y Sex: MALE BP: 121/61 HR: 86 bpm Sonogrphr: Manoj GARRISON Pat. Stat.:Inpatient Room: ED 22 Study Status:Final Echo Event ID:[id number] Order ID: [id number] Reason for Study:stemi last week, chest pain History / Clinical:Cancer, Coronary Artery Disease, Diabetes, Hyperlipidemia Procedures:2D Echo, Colorflow Doppler, Intravenous Optison Contrast SUMMARY: LV systolic function is mildly depressed, with biplane LVEF=43%. Regional wall motion abnormalities present. Akinetic apex noted, without thrombus by contrast echo. Diastolic dysfunction Grade II (Moderate): Impaired relaxation with normal LV filling pressures. Estimated PA systolic pressure is 32 mmHg, assuming a mean RAP of 5 mmHg. FINDINGS: LV: LV size is normal. Concentric left ventricular remodeling. LV EF is mildly depressed. Regional wall motion abnormalities present. Biplane LVEF=43%. RV: RV size is normal. RV systolic function is normal. LA: LA volume is mildly enlarged. RA: RA volume is normal. AO: Aortic root diameter is normal in size. Calcifications in ascending aorta. IMRA: Trace anterior pericardial effusion. AV: Mild thickening of AV leaflets. A trace of aortic regurgitation. MV: Mild thickening of mitral leaflets. Thickened and calcified chordae. PV: Pulmonic valve not well seen. TV: No structural TV abnormalities noted. A trace of tricuspid regurgitation Gonzalez: Diastolic dysfunction Grade I (Mild): Impaired relaxation with normal LV filling pressures. Other: Estimated PA systolic pressure is 32 mmHg, assuming a mean RAP of 5 mmHg. MEASUREMENTS: 2D Parasternal Long [place] LA Ds 3 cm IVSd 1.2 cm Ao An 2.4 cm LVPWd 1.2 cm Ao Rtd 3.8 cm Index 1.9 cm/m LV Mass 183.3 g (122-174) LVIDd 4.3 cm Index 2.1 cm/m LVM Index 91.2 g/m2 LVIDs 3.4 cm RWT 0.6 LV%fs 22.1 % LVOT 2 cm LV EF Biplane LVEDV 150.1 ml (65-193) Index 74.7 ml/m HR 68 bpm LVESV 85.5 ml Index 42.5 ml/m LV CO 4.4 l/min LV SV 64.6 ml LV CI 2.2 l/m/m2 LV EF 43 % (63-77) LA Sng Plane LA Area 21.9 cm2 (8.8-23.4) LA Vol 73.1 ml Index 36.4 ml/m LA LngAx 5.2 cm RA Sng Plane RA Area 19.8 cm2 (8.3-19.5) RA Vol 58.9 ml Index 29.3 ml/m RA LngAx 5.7 cm DOPPLER LVOT Stroke Vol LVOT 2 cm LVOT CO 4 l/min LVOT TVI 19.1 cm LVOT CI 2 l/m/m2 LVOT Tm 267 msec HR 67 bpm LVOT SV 60 ml TV Pressure Gradient TV PkVel 260.2 cm/s TV PG 27.1 mmHg WALL MOTION: RESTING WALL MOTION: Apical Anterior, Apical Septal, Apical Inferior, Apical Lateral, Apical guaman are akinetic. Mid Anterior, Mid Anteroseptal, Mid Inferoseptal, Mid Anterolateral guaman are hypokinetic. Normal in all other guaman. Wall Index=1.8 Signed 01/30/2019 02:44 PM Humza Martinez M.D. Performing Organization Address [facility] [place] Phone Number [facility] [id number] [place] [address] CRITICAL CARE (01/29/2019 1:09 PM CDT) Narrative Performed At Kia Sampson MD 01/29/20199:57 PM Critical Care Performed by: Kia Sampson MD Authorized by: Kia Sampson MD Critical care provider statement: Critical care time (minutes):35 Critical care time was exclusive of:Separately billable procedures and treating other patients Critical care was necessary to treat or prevent imminent or life-threatening deterioration of the following conditions: Unstable angina; on heprin. Critical care was time spent personally by me on the following activities:Blood draw for specimens, obtaining history from patient or surrogate, interpretation of cardiac output measurements, examination of patient, evaluation of patient's response to treatment, discussions with primary provider, discussions with consultants, development of treatment plan with patient or surrogate, ordering and performing treatments and interventions, ordering and review of laboratory studies, ordering and review of radiographic studies, pulse oximetry, re-evaluation of patient's condition and review of old charts B natriuretic peptide (01/29/2019 11:46 AM CDT) BNP 880 (H) 0 - 100 pg/mL [facility] Specimen Blood Performing Organization Address City/State/Zipcode Phone Number [facility] DEPARTMENT OF PATHOLOGY AND [address] [place] [address] GENOMIC MEDICINE [facility] [address] [place] [address] after 04/01/2018 Insurance Payer Benefit Plan / Subscriber ID Effective Phone Address Type Group Dates MEDICARE MEDICARE PART A xxxxxxxxxxx 2013-Pres [place], [place] Medicare AND B ent COMMERCIAL MISC MISC COMMERCIAL xxxxxxxx 2016-Pr Commercial esent Advance Directives Patient has advance care planning documents, and code status on file. For more information, please contact:[facility] [place] [id number] Code Status Date Activated Date Inactivated Comments Full Code 02/12/2017 1:12 PM 02/14/2017 3:18 PM Code Status decision reached by: Patient
--- OUTSIDE RECORDS SUMMARY | 2019-04-02 10:51 | XMS REPORT | Continuity of Care Document ---
:1945 Author Organization Interface Problems Problem Status Onset Classification Date Comments Source Date Reported CHEST PAIN Active 01/19/[address] NON-ST ELEVATION Active 01/19/[address] RUSLAN, BILLING Active 01/19/[address] Tremor of right Active Problem 01/23/2019 [facility] Nephrolithiasis Resolved Problem 01/23/2019 [facility] Prostate cancer Active Problem 01/23/2019 [facility] NON-ST ELEVATION Active [facility] (NSTEMI) [facility] MYOCARDIAL INF Center Medications Medication Details Route Status Patient Ordering Order Source Instructions Provider Date metoprolol 12.5 mg, 0.5 Inactive [facility] tartrate tab, Route: 2018 Medical PO, Drug form: Center TAB, BID, Dosing Weight 85, kg, Start date: 01/21/19 17:00:00 CDT, Duration: 30 day, Stop date: 02/20/19 9:00:00 CDTNotes: (Same as: Lopressor) 12.5 mg=1/2 X 25 mg TAB metoprolol 12.5 mg, 0.5 Inactive [facility] tartrate tab, Route: 2019 Medical PO, Drug form: Center TAB, Q12H, Dosing Weight 85, kg, Priority: NOW, Start date: 01/21/19 11:03:00 CDT, Duration: 30 day, Stop date: 02/20/19 9:00:00 CDTNotes: (Same as: Lopressor) 12.5 mg=1/2 X 25 mg TAB ticagrelor 90 mg 90 mg=1 tab, Active [facility] oral tablet PO, Q12H, # 60 2019 Medical tab, 11 Center Refill(s) metoprolol 12.5 mg=0.5 Active [facility] tartrate 25 mg tab, PO, BID, 2019 Medical oral tablet # 30 tab, 0 Center Refill(s) Miralax 17 gm, 1 pkt, Inactive [place] Route: PO, 2019 Medical Drug form: [place] PWDR, ONCE, Dosing Weight 85, kg, Start date: 01/20/19 18:07:00 CDT, Stop date: 01/20/19 18:07:00 CDTNotes: Dissolve in 8 oz of water or juice. (Same as: Miralax) sennosides, S[facility]IOR [facility]ARE 8.6 mg, 1 tab, No Longer [place] Route: PO, Active 2018 Medical Drug Form: [place] TAB, Dosing Weight 85, kg, Daily, PRN Constipation, Start date: 01/20/19 18:07:00 CDT, Duration: 30 day, Stop date: 02/19/19 18:06:00 CDTNotes: (Same as: Senokot) Aspirin 81 mg, 1 tab, No Longer [place] Route: PO, Active 2018 Medical Drug form: [place] ECTAB, Daily, Dosing Weight 85, kg, Start date: 01/20/19 9:00:00 CDT, Duration: 30 day, Stop date: 02/18/19 9:00:00 CDTNotes: Do not crush or chew. (Same As: Ecotrin) Ticagrelor 90 mg, 1 tab, No Longer [place] Route: PO, Active 2018 Medical Drug form: [place] TAB, Q12H, Dosing Weight 85, kg, Start date: 01/19/19 23:00:00 CDT, Duration: 30 day, Stop date: 02/18/19 21:00:00 CDTNotes: (Same as: Brilinta) Sodium Chloride 250 mL, 250 Inactive [place] 0.9% (Bolus) IV ml/hr, Infuse 2019 Medical Over: 1 hr, [place] Route: IV, 250, Drug form: INJ, ONCE, Dosing Weight 85 kg, Start date: 01/19/19 11:05:00 CDT, Stop date: 01/19/19 11:05:00 CDT Nitroglycerin 0.4 mg, 1 tab, No Longer [place] Route: SL, Active 2019 Medical Drug form: [place] TAB, Q5Min, Dosing Weight 85, kg, PRN Chest Pain, Start date: 01/19/19 11:05:00 CDT, Duration: 3 doses or times, Stop date: Limited # of timesNotes: (Same as:Nitroquick, Nitrostat) "Do Not Crush" Sublingual tablet ezetimibe 10 mg, 1 tab, No Longer [place] Route: PO, Active 2019 Medical Drug form: [place] TAB, Daily, Dosing Weight 85, kg, Start date: 01/19/19 9:00:00 CDT, Duration: 30 day, Stop date: 02/17/19 9:00:00 CDTNotes: (Same as: Zetia) gabapentin 200 mg, 2 cap, No Longer [facility] Route: PO, Active 2019 Medical Drug form: [place] CAP, BID, Dosing Weight 85, kg, Start date: 01/19/19 9:00:00 CDT, Duration: 30 day, Stop date: 02/17/19 17:00:00 CDTNotes: (Same as: Neurontin) Plavix 75 mg, 1 tab, Inactive [place] Route: PO, 2019 Medical Drug form: [place] TAB, Daily, Dosing Weight 85, kg, Start date: 01/19/19 9:00:00 CDT, Duration: 30 day, Stop date: 02/17/19 9:00:00 CDTNotes: (Same As: Plavix) atorvastatin 40 mg, 1 tab, No Longer [place] Route: PO, Active 2018 Medical Drug form: [place] TAB, Daily, Dosing Weight 85, kg, Start date: 01/19/19 9:00:00 CDT, Duration: 30 day, Stop date: 02/17/19 9:00:00 CDTNotes: (Same as: Lipitor) Saline Flush 10 ml, Route: No Longer [place] 0.9% IVP, Drug Active 2019 Medical Form: INJ, [place] Dosing Weight 85, kg, Q12H, Start date: 01/19/19 9:00:00 CDT, Duration: 30 day, Stop date: 02/17/19 21:00:00 CDTNotes: Same as: BD Posiflush Sterile Aspirin 325 MG 325 mg, 1 tab, Inactive [place] Oral Tablet Route: PO, 2019 Medical Drug form: [place] ECTAB, ONCE, Dosing Weight 85, kg, Start date: 01/19/19 8:30:00 CDT, Stop date: 01/19/19 8:30:00 CDTNotes: (Do Not Crush) Do not crush or chew. Insulin Lispro 5 unit, 0.05 No Longer [place] mL, Route: Active 2019 Medical SUB-Q, Drug Center form: SOLN, TID-Before Meals, Dosing Weight 85, kg, PRN Blood Glucose Results, Start date: 01/19/19 6:27:00 CDT, Duration: 30 day, Stop date: 02/18/19 6:26:00 CDTNotes: (Same as: Humalog ) Roll in palms of hands gently; Do not shake `vigorously. "Single Patient Use Only " WASTE: F/P - Black; E - Municipal Trash Bin Stable for 28 days at room temperature. Expires in days from Date Dextrose 50% 25 gm, 50 mL, No Longer [place] Syringe Route: IVP, Active 2019 Medical Drug Form: [place] INJ, Dosing Weight 85, kg, PRN, PRN Blood Glucose Results, Start date: 01/19/19 6:27:00 CDT, Duration: 30 day, Stop date: 02/18/19 6:26:00 CDT Glucagon 1 mg, Route: No Longer [place] IM, Drug form: Active 2019 Medical PDR/INJ, PRN, [place] Dosing Weight 85, kg, PRN Blood Glucose Results, Start date: 01/19/19 6:27:00 CDT, Duration: 30 day, Stop date: 02/18/19 6:26:00 CDT Calcium 1,000 mg, 2 No Longer [place] Carbonate 500 MG tab, Route: Active 2019 Medical Chewable Tablet PO, Drug form: [place] CHEWTAB, PRN, Dosing Weight 85, kg, PRN Abnormal Lab Result, FOR ICU USE ONLY, Start date: 01/19/19 1:38:00 CDT, Duration: 30 day, Stop date: 02/18/19 1:37:00 CDTNotes: (Same As: Tums) Calcium Carbonate 500 pm=728 mg elemental calcium Dose= mg calcium carbonate ( mg elemental calcium) sodium phosphate 15 mmol, 5 mL, No Longer [place] Route: IVPB, Active 2019 Medical PRN, Dosing Center Weight 85, kg, PRN Abnormal Lab Result, Start date: 01/19/19 1:38:00 CDT, Duration: 30 day, Stop date: 02/18/19 1:37:00 CDT, FOR ICU USE ONLYNotes: Infuse over 4 hour. Do not infuse phosphorous concurrently in the same line as TPN or IVF that contains calcium. For double lumen central lines, phosphorous may be infused in a separate lumen from TPN. Potassium 20 mEq, 1 tab, No Longer [place] Chloride Route: PO, Active 2018 Medical Drug form: [place] ERTAB, PRN, Dosing Weight 85, kg, PRN Abnormal Lab Result, Start date: 01/19/19 1:38:00 CDT, Duration: 30 day, Stop date: 02/18/19 1:37:00 CDT, FOR ICU USE ONLYNotes: (Same as: K-Dur 20) "Do Not Crush" Give with food and full glass of water For patients unable to swallow tablet, dissolve in one half glass of water. Allow about 2 minutes for the tablets to disintegrate. Stir before giving to prepare slurry and administer. Please exclude Patients with feeding tube less than 14 Armenian (Dobhoff, J-tube etc) and pediatric and patients. Calcium 1 gm, 10 mL, No Longer [place] Gluconate Route: IVPB, Active 2018 Medical PRN, Dosing Center Weight 85, kg, PRN Abnormal Lab Result, Start date: 01/19/19 1:38:00 CDT, Duration: 30 day, Stop date: 02/18/19 1:37:00 CDT, FOR ICU USE ONLYNotes: WASTE: F/P - Sink; E - Municipal Trash Bin Magnesium 2 gm, 50 mL, No Longer [place] Sulfate Route: IVPB, Active 2018 Medical Drug form: [place] INJ, PRN, Dosing Weight 85, kg, PRN Abnormal Lab Result, Start date: 01/19/19 1:38:00 CDT, Duration: 30 day, Stop date: 02/18/19 1:37:00 CDT, FOR ICU USE ONLYNotes: WASTE: F/P - Sink; E - Municipal Trash Bin Magnesium Oxide 800 mg, 2 tab, No Longer [place] Route: PO, Active 2019 Medical Drug form: Center TAB, PRN, Dosing Weight 85, kg, PRN Abnormal Lab Result, FOR ICU USE ONLY, Start date: 01/19/19 1:38:00 CDT, Duration: 30 day, Stop date: 02/18/19 1:37:00 CDTNotes: (Same as: Mag-Ox 400) Magnesium oxide [id number] elemental magnesium Dose=____mg magnesium oxide (___mg elemental magnesium) potassium 2 pkt, Route: No Longer [place] phosphate-sodium PO, Drug Form: Active 2019 Medical phosphate 250 PDR/REC, Center mg-280 mg-160 mg Dosing Weight oral powder for 85, kg, PRN, reconstitution PRN Abnormal Lab Result, FOR ICU USE ONLY, Start date: 01/19/19 1:38:00 CDT, Duration: 30 day, Stop date: 02/18/19 1:37:00 CDTNotes: (Same as: Phos-NaK) Each 1.5 gm pkt has 250mg phosphorous. Mix w/2.5oz water and stir. potassium 45 mmol, 15 No Longer [place] phosphate mL, Route: Active 2019 Medical IVPB, PRN, Center Dosing Weight 85, kg, PRN Abnormal Lab Result, Start date: 01/19/19 1:38:00 CDT, Duration: 30 day, Stop date: 02/18/19 1:37:00 CDT, FOR ICU USE ONLYNotes: (Same as: K Phosphate.) Do not infuse phosphorous concurrently in the same line as TPN or IVF that contains calcium. For double lumen central lines, phosphorous may be infused in a separate lumen from TPN. 1 mMol phoshate has 1.47 mEq potassium Infuse over 4 hours gabapentin 200 mg, PO, Active [place] BID, 0 2019 Medical Refill(s) Center Metformin 1,000 mg, PO, Active [place] BID, 0 2019 Medical Refill(s) Center ezetimibe 10 mg=1 tab, Active [facility] PO, Daily, # 2019 Medical 30 tab, 0 Center Refill(s) atorvastatin 40 mg, PO, Active [facility] Daily, 0 2019 Medical Refill(s) Center Plavix 75 mg, PO, No Longer [facility] Daily, 0 Active 2019 Medical Refill(s) Center Aspirin 81 mg, PO, Active [facility] Daily, 0 2019 Medical Refill(s) Center Saline Flush 10 ml, Route: No Longer [place] 0.9% IVP, Drug Active 2019 Medical Form: INJ, Center Dosing Weight 85, kg, PRN, PRN Line Flush, Start date: 01/18/19 23:25:00 CDT, Duration: 30 day, Stop date: 02/17/19 23:24:00 CDTNotes: Same as: BD Posiflush Sterile Nystatin 100 1 appl, Route: No Longer [place] UNT/MG Topical TOP, PRN, Drug Active 2019 Medical Powder form: PWDR, [place] PRN For Fungal Prophylaxis, Start date: 01/18/19 23:25:00 CDT, Duration: 30 day, Stop date: 02/17/19 23:24:00 CDTNotes: (Same as:Mycostatin, Nilstat) For external use only. Aspirin 325 mg, 1 tab, Inactive [place] Route: PO, 2019 Medical Drug form: Center TAB, ONCE, Dosing Weight 85, kg, Priority: STAT, Start date: 01/18/19 23:03:00 CDT, Stop date: 01/18/19 23:03:00 CDTNotes: Take with food. Heparin - one 4,000 unit, 4 Inactive [facility] time bolus for mL, Route: 2019 Medical ACS IVP, Drug Center form: INJ, ONCE, Dosing Weight 85, kg, Priority: STAT, Start date: 01/18/19 22:38:00 CDT, Stop date: 01/18/19 22:38:00 CDT Heparin 60 Route: IVP, No Longer [facility] unit/kg Bolus PRN, 5,100 Active 2019 Medical (Heparin Dosing unit, 5.1 mL, Center Weight) Drug form: INJ, PRN, Heparin Protocol, Start date: 01/18/19 22:38:00 CDT Stop date: 02/17/19 22:37:00 CDT, 30 day Heparin 30 Route: IVP, No Longer [facility] unit/kg Bolus PRN, 2,600 Active 2019 Medical (Heparin Dosing unit, 2.6 mL, Center Weight) Drug form: INJ, PRN, Heparin Protocol, Start date: 01/18/19 22:38:00 CDT Stop date: 02/17/19 22:37:00 CDT, 30 day heparin additive 500 mL, Rate: No Longer [facility] 25,000 unit [12 20.4 ml/hr, Active 2018 Medical unit/kg/hr] + Infuse over: [place] Premix Diluent 24.5 hr, Sodium Chloride Route: IV, 0.45% 500 mL Dosing Weight 85 kg, Total Volume: 500 mL, Start date: 01/18/19 22:38:00 CDT, Duration: 30 day, Stop date: 02/17/19 22:37:00 CDT, 2.07, [id number]: Total Concentration= 50 unit/ ml Total dvmmha=596 ml Send Med Request 2 hours prior to next bag Plavix 300 mg, 1 tab, Inactive [place] Route: PO, 2019 Medical Drug form: Center TAB, ONCE, Dosing Weight 85, kg, Priority: STAT, Start date: 01/18/19 22:34:00 CDT, Stop date: 01/18/19 22:34:00 CDTNotes: ( Same as: Plavix) Nitroglycerin 100 mg, 250 No Longer [facility] mL, Rate: Active 2018 Medical Titrate, Start Center Dose: 10 microgram/min, Titration: 10 microgram/min every 5 minutes, Goal(s): Chest pain and SBP between 100 - 150 mmHg, Max Dose: 200 mcg/min, Route: IV, Dosing Weight 85 kg, Total Volume: 250, Start date: ...Note s: (Same as:Tridil) Final conc=0.4 mg/ml. Premix bottle. Allergies, Adverse Reactions, Alerts Substance Category Reaction Severity Reaction Status Date Comments Source type Reported Immunizations Immunization Date Given Site Status Last Updated Comments Source Results Order Name Results Value Reference Date Interpretation Comments Source Range CHEM PANEL Phosphorus 2.5 mg/dL 2.5 - 4.5 01/21 [facility] /2018 [facility] CHEM PANEL Magnesium 2.0 mg/dL 1.8 - 2.4 01/21 [facility] ELECTROLYTE AGAP 7.7 meq/L 10.0 - 01/21 [facility] 20.0 [facility] ELECTROLYTE eGFR 98 01/21 Result Comment: The eGFR is calculated using the CKD-EPI formula. In most young, healthy individuals the eGFR will be >90 mL/ min/1.73m2. The eGFR declines with age. An eGFR of 60-89 may be normal in [facility] mL/min/1.73 /2018 some populations, particularly the elderly, for whom the CKD-EPI formula has not been extensively validated. Use of the eGFR is not recommended in the following populations: [address] Individuals with unstable creatinine concentrations, including patients and those with serious co-morbid conditions. Patients with extremes in muscle mass or diet. The data above are obtained from the National Kidney Disease Education Program (NKDEP) which additionally recommends that when the eGFR is used in patients with extremes of body mass index for purposes of drug dosing, the eGFR should be multiplied by the estimated BMI. ELECTROLYTE Calcium Lvl 8.2 mg/dL 8.5 - 10.5 01/[address] ELECTROLYTE Potassium 3.7 meq/L 3.5 - 5.1 01/21 [facility] ELECTROLYTE CO2 26 meq/L 24 - 32 01/[address] ELECTROLYTE Chloride Lvl 108 meq/L 95 - 109 01/[address] ELECTROLYTE Glucose Lvl 128 mg/dL 70 - 99 01/[address] ELECTROLYTE Creatinine 0.65 mg/dL 0.50 - 01/21 [facility] Lvl 1.40 [facility] ELECTROLYTE BUN 20 mg/dL 7 - 22 01/[address] ELECTROLYTE Sodium Lvl 138 meq/L 135 - 145 01/[address] HEMATOLOGY INR 1.02 0.85 - 01/21 [facility] 1.17 [facility] HEMATOLOGY PT 13.2 s 12.0 - 01/21 [facility] 14. [facility] HEMATOLOGY Platelet 202 K/CMM 133 - 450 01/[address] HEMATOLOGY RDW 14.6 % 11.5 - 01/21 [facility] . [facility] HEMATOLOGY MPV 7.9 fL 7.4 - 10.4 01/21 [facility] HEMATOLOGY MCV 94.3 fL 80.0 - 01/21 [facility] 94.0 [facility] HEMATOLOGY MCHC 33.4 g/dL 32.0 - 01/21 36.0 [facility] HEMATOLOGY MCH 31.5 pg 27.0 - 01/21 [facility] 31.0 [facility] HEMATOLOGY Hct 30.1 % 42.0 - 01/21 54.0 [facility] HEMATOLOGY Hgb 10.1 g/dL 14.0 - 01/21 18.0 [facility] HEMATOLOGY RBC 3.19 M/CMM 4.70 - 01/21 [place] 6.10 [facility] HEMATOLOGY WBC 6.5 K/CMM 3.7 - 10.4 01/21 2018 [facility] PARATHYROID Ca Norm WB 1.01 mMol/L 1.05 - 01/21 [facility] PROFILE 11.01 [facility] PARATHYROID Ca Ion WB 0.99 mMol/L . - 01/21 [facility] 11.01 [facility] CHEM PANEL eGFR 98 01/20 Result Comment: The eGFR is calculated using the CKD-EPI formula. In most young, healthy individuals the eGFR will be >90 mL/ min/1.73m2. The eGFR declines with age. An eGFR of 60-89 may be normal in [facility] mL/min/1.73 /2018 some populations, particularly the elderly, for whom the CKD-EPI formula has not been extensively validated. Use of the eGFR is not recommended in the following populations: [place] [address] [facility] Individuals with unstable creatinine concentrations, including patients and those with serious co-morbid conditions. Patients with extremes in muscle mass or diet. The data above are obtained from the National Kidney Disease Education Program (NKDEP) which additionally recommends that when the eGFR is used in patients with extremes of body mass index for purposes of drug dosing, the eGFR should be multiplied by the estimated BMI. CHEM PANEL Glucose Lvl 143 mg/dL 70 - 99 01/20 [facility] CHEM PANEL Sodium Lvl 139 meq/L 135 - 145 01/20 [facility] CHEM PANEL BUN 25 mg/dL 7 - 22 01/20 [facility]2018 [facility] CHEM PANEL Potassium 3.9 meq/L 3.5 - 5.1 01/20 [facility] Lvl [facility] CHEM PANEL Chloride Lvl 108 meq/L 95 - 109 01/[address] CHEM PANEL Calcium Lvl 8.1 mg/dL 8.5 - 10.5 01/[address] CHEM PANEL Creatinine 0.65 mg/dL 0.50 - 01/20 [facility] Lvl 1.40 [facility] CHEM PANEL CO2 27 meq/L 24 - 32 01/[address] CHEM PANEL AGAP 7.9 meq/L 10.0 - 01/20 [place] 20.0 [facility] CHEM PANEL A/G Ratio 0.9 0.7 - 1.6 01/[address] CHEM PANEL Globulin 3.8 g/dL 2.7 - 4.2 01/[address] CHEM PANEL ALT 50 unit/L 0 - 65 01/[address] CHEM PANEL AST 147 unit/L 0 - 37 01/[address] CHEM PANEL Alk Phos 73 unit/L 39 - 136 01/[address] CHEM PANEL Bili 0.1 mg/dL 0.0 - 1.0 01/20 [facility] CHEM PANEL Bili Direct 0.2 mg/dL 0.0 - 0.3 01/[address] CHEM PANEL Bili Total 0.3 mg/dL 0.2 - 1.3 01/[address] CHEM PANEL Total 7.1 g/dL 6.4 - 8.4 01/20 [facility] Protein [facility] CHEM PANEL Albumin Lvl 3.3 g/dL 3.5 - 5.0 01/[address] CHEM PANEL Magnesium 2.4 mg/dL 1.8 - 2.4 01/20 [facility] [address] [place] [address] CHEM PANEL Phosphorus 2.6 mg/dL 2.5 - 4.5 01/[address] HEMATOLOGY Neutrophils 5.6 K/CMM 1.5 - 8.1 01/20 [facility] /2018 [facility] HEMATOLOGY Basophils 0.2 % 0.0 - 1.0 01/[address] HEMATOLOGY Monocytes # 0.6 K/CMM 0.0 - 0.8 01/[address] HEMATOLOGY Lymphocytes 0.5 K/CMM 1.0 - 5.5 04/15 [place] # /2018 [facility] HEMATOLOGY Eosinophils 0.1 K/CMM 0.0 - 0.5 01/20 [facility] # /2018 [facility] HEMATOLOGY Segs 82.8 % 45.0 - 01/20 [place] 75.0 /2019 [facility] HEMATOLOGY Eosinophils 0.8 % 0.0 - 4.0 01/20 [facility] HEMATOLOGY Monocytes 8.6 % 2.0 - 12.0 01/20 [facility] HEMATOLOGY Lymphocytes 7.6 % 20.0 - 01/20 [place] 40.0 /2019 [facility] HEMATOLOGY WBC 6.8 K/CMM 3.7 - 10.4 01/20 [facility] HEMATOLOGY MCH 31.3 pg 27.0 - 01/20 [facility] 31.0 [facility] HEMATOLOGY MCV 92.3 fL 80.0 - 01/20 [facility] 94.0 [facility] HEMATOLOGY Hct 30.8 % 42.0 - 01/20 [facility] 54.0 [facility] HEMATOLOGY Hgb 10.4 g/dL 14.0 - 01/20 [place] 18.0 [facility] HEMATOLOGY RBC 3.33 M/CMM 4.70 - 01/20 [place] 6.10 [facility] HEMATOLOGY MPV 8.0 fL 7.4 - 10.4 01/20 [facility] HEMATOLOGY Platelet 196 K/CMM 133 - 450 01/20 [facility] HEMATOLOGY RDW 14.2 % 11.5 - 01/20 [facility] 14.5 [facility] HEMATOLOGY MCHC 33.8 g/dL 32.0 - 01/20 [place] 36.0 [facility] PARATHYROID Ca Norm WB 1.08 mMol/L 1.05 - 01/20 [place] PROFILE 1. [facility] PARATHYROID Ca Ion WB 1.09 mMol/L 1.05 - 01/20 [place] PROFILE 1. [facility] CARDIAC CK MB 114.8 ng/mL 0.5 - 3.6 01/20 [facility] ENZYMES /2018 [facility] CARDIAC CK MB Index 8.7 0.0 - 2.5 01/20 [facility] /2018 [facility] CARDIAC Troponin-I 30.10 ng/mL 0.00 - 01/20 Result [facility] ENZYMES 0.40 Comment: [facility] Result(s) called to rich at 01/19/2019 21:41 by ko. Read back OK. CARDIAC Total CK 1322 unit/L 12 - 191 01/20 [facility] /2018 [facility] CARDIAC Troponin-T 2.480 ng/mL 0.000 - 01/20 Result [facility] ENZYMES 0.100 /2018 Comment: [facility] Result(s) called to Tejinder Bardales at 01/19/2019 21:54 by NT. Read back OK. CHEM PANEL Phosphorus 3.2 mg/dL 2.5 - 4.5 01/20 [facility] /2018 [facility] CHEM PANEL Magnesium 1.9 mg/dL 1.8 - 2.4 01/20 [facility] Lvl [facility] ELECTROLYTE AGAP 12.6 meq/L 10.0 - 01/20 [facility] S 20.0 [facility] ELECTROLYTE Calcium Lvl 8.1 mg/dL 8.5 - 10.5 01/20 [facility]2018 [facility] ELECTROLYTE Chloride Lvl 103 meq/L 95 - 109 01/20 [facility]2018 [facility] ELECTROLYTE CO2 25 meq/L 24 - 32 01/20 [facility]2018 [facility] ELECTROLYTE eGFR 86 01/20 Result Comment: The eGFR is calculated using the CKD-EPI formula. In most young, healthy individuals the eGFR will be >90 mL/ min/1.73m2. The eGFR declines with age. An eGFR of 60-89 may be normal in [facility] mL/min/1.73 /2018 some populations, particularly the elderly, for whom the CKD-EPI formula has not been extensively validated. Use of the eGFR is not recommended in the following populations: [place] [address] [facility] Individuals with unstable creatinine concentrations, including patients and those with serious co-morbid conditions. Patients with extremes in muscle mass or diet. The data above are obtained from the National Kidney Disease Education Program (NKDEP) which additionally recommends that when the eGFR is used in patients with extremes of body mass index for purposes of drug dosing, the eGFR should be multiplied by the estimated BMI. ELECTROLYTE Sodium Lvl 137 meq/L 135 - 145 01/20 [facility] ELECTROLYTE Potassium 3.6 meq/L 3.5 - 5.1 01/20 [facility] ELECTROLYTE Creatinine 0.90 mg/dL 0.50 - 01/20 [facility] ELECTROLYTE BUN 30 mg/dL 7 - 22 01/20 [facility] S [facility] ELECTROLYTE Glucose Lvl 162 mg/dL 70 - 99 01/20 [facility] S [facility] HEMATOLOGY Segs 80.6 % 45.0 - 01/20 75.0 /2019 [facility] HEMATOLOGY Basophils 0.4 % 0.0 - 1.0 01/20 [facility] HEMATOLOGY Lymphocytes 8.2 % 20.0 - 01/20 40.0 2019 [facility] HEMATOLOGY Eosinophils 0.8 % 0.0 - 4.0 01/20 [facility] HEMATOLOGY Monocytes 10.0 % 2.0 - 12.0 01/20 [facility] HEMATOLOGY Neutrophils 5.9 K/CMM 1.5 - 8.1 01/20 [facility] HEMATOLOGY Monocytes # 0.7 K/CMM 0.0 - 0.8 01/20 [facility] HEMATOLOGY Lymphocytes 0.6 K/CMM 1.0 - 5.5 01/20 [facility] HEMATOLOGY Eosinophils 0.1 K/CMM 0.0 - 0.5 01/20 [facility] HEMATOLOGY PT 13.8 s 12.0 - 01/20 14.7 2019 [facility] HEMATOLOGY PTT 33.0 s 22.9 - 01/20 35.8 2019 [facility] HEMATOLOGY INR 1.08 0.85 - 01/20 1.17 [facility] HEMATOLOGY Hct 29.3 % 42.0 - 01/20 54.0 /2019 [facility] HEMATOLOGY WBC 7.4 K/CMM 3.7 - 10.4 01/20 [facility] HEMATOLOGY MCHC 35.1 g/dL 32.0 - 01/20 36.0 2019 [facility] HEMATOLOGY Hgb 10.3 g/dL 14.0 - 01/20 18.0 2019 [facility] HEMATOLOGY RBC 3.16 M/CMM 4.70 - 01/20 6.10 2019 [facility] HEMATOLOGY Platelet 198 K/CMM 133 - 450 01/20 [facility] HEMATOLOGY MCH 32.5 pg 27.0 - 01/20 31.0 2019 [facility] HEMATOLOGY MCV 92.6 fL 80.0 - 01/20 [place] 94.0 [facility] HEMATOLOGY RDW 14.3 % 11.5 - 01/20 [place] 14.5 [facility] HEMATOLOGY MPV 8.1 fL 7.4 - 10.4 01/20 [facility] MYOGLOBIN Myoglobin 92 ng/mL 25 - 72 01/20 /2018 [facility] PARATHYROID Ca Norm WB 1.07 mMol/L 1.05 - 01/20 [place] PROFILE 1. [facility] PARATHYROID Ca Ion WB 1.07 mMol/L 1.05 - 01/20 [facility] PROFILE 1. [facility] CARDIAC Troponin-I 34.70 ng/mL 0.00 - 01/19 Result [facility] ENZYMES 0.40 2019 Comment: [facility] Result(s) called to Farhana at 01/19/2019 16:35 by JESSENIA. Read back OK. HEMATOLOGY PTT 42.2 s .9 - 01/19 [facility] 35.8 [facility] HEMATOLOGY PTT null 22. - 01/19 Result [facility] 35. Comment: [facility] Result(s) called to Dre Trammell at 01/19/2019 13:56 by tk. Read back OK. CARDIAC Troponin-I null 0.00 - 01/19 Result [facility] ENZYMES 0.40 2019 Comment: [facility] Result(s) called to Sarai Trammell at 01/19/2019 10:45 by tk. Read back OK. BLOOD BANK Antibody Negative 01/19 [facility] RESULTS Scrn [facility] (01/19/19 7:43 AM) Center BLOOD BANK ABO/Rh O NEG 01/19 [facility] RESULTS [facility] ANEMIA Vitamin B12 359 pg/mL 254 - 1320 01/19 [facility] STUDY Lvl /2018 [facility] ANEMIA Folate Lvl 21.2 ng/mL >=3.0 01/19 [facility] STUDY ng/mL /2018 [facility] ANEMIA Iron 44 ug/dl 45 - 160 01/19 [facility] STUDY [facility] ANEMIA % Satur Fe 18 % 12 - 57 01/19 [facility] STUDY /2018 [facility] ANEMIA UIBC 196 ug/dl 110 - 370 01/19 [facility] STUDY /2018 [facility] ANEMIA TIBC 240 ug/dl 228 - 428 01/19 [facility] STUDY [facility] BACTERIAL - MRSA by PCR Negative 01/19 [facility] SEROLOGY [facility] (01/19/19 3:46 AM) Center HEMATOLOGY Monocytes 6.9 % 2.0 - 12.0 01/19 [facility] HEMATOLOGY Lymphocytes 7.9 % 20.0 - 01/19 [facility] 40.0 [facility] HEMATOLOGY Segs 84.9 % 45.0 - 01/19 [facility] 75.0 [facility] HEMATOLOGY Basophils 0.2 % 0.0 - 1.0 01/19 [facility]2018 [facility] HEMATOLOGY Eosinophils 0.1 % 0.0 - 4.0 01/19 [facility]2018 [facility] HEMATOLOGY Monocytes # 0.5 K/CMM 0.0 - 0.8 01/19 [facility] HEMATOLOGY Lymphocytes 0.6 K/CMM 1.0 - 5.5 01/19 [facility] HEMATOLOGY Neutrophils 6.2 K/CMM 1.5 - 8.1 01/19 [facility] IMMUNOLOGY Hep B Core Negative Negative 01/[address] [facility] (01/19/19 3:46 AM) IMMUNOLOGY Hep Bs Ab 5.1 mIU/mL <=7.4 01/19 [facility] mIU/mL [facility] IMMUNOLOGY Hep Bs Ag Negative Negative 01/[address] [facility] (01/19/19 3:46 AM) IMMUNOLOGY Hep C Ab Negative 01/[address] [facility] (01/19/19 3:46 AM) LIPIDS VLDL 17 01/19 [facility] LIPIDS LDL 67 mg/dL <=99 mg/dL 01/19 [facility] (Calculated) [facility] LIPIDS Trig 86 mg/dL <=149 01/19 [facility] mg/dL [facility] LIPIDS HDL 45 mg/dL >=61 mg/dL 01/19 [facility] LIPIDS Chol 129 mg/dL <=199 01/19 [facility] mg/dL [facility] LIPIDS CHD Risk 2.87 4.00 - 01/19 [facility] 7.30 [facility] CHEM PANEL Bili 0.4 mg/dL 0.0 - 1.0 01/19 [facility] Indirect [facility] CHEM PANEL Bili Direct 0.1 mg/dL 0.0 - 0.3 01/19 [facility]2018 [facility] CHEM PANEL Alk Phos 71 unit/L 39 - 136 01/[address] CHEM PANEL Bili Total 0.5 mg/dL 0.2 - 1.3 01/[address] CHEM PANEL Albumin Lvl 3.3 g/dL 3.5 - 5.0 01/[address] CHEM PANEL AST 47 unit/L 0 - 37 01/[address] CHEM PANEL ALT 25 unit/L 0 - 65 01/[address] CHEM PANEL Total 7.3 g/dL 6.4 - 8.4 01/19 [facility] Protein [facility] CHEM PANEL Globulin 4.0 g/dL 2.7 - 4.2 01/[address] CHEM PANEL A/G Ratio 0.8 0.7 - 1.6 01/[address] CHEM PANEL Lactic Acid 1.3 mMol/L 0.5 - 2.2 01/19 [facility] SPECIAL Hgb A1C 6.3 % <=5.6 % 01/19 [facility] CHEMISTRY [facility] HEMATOLOGY INR 1.04 0.85 - 01/19 [facility] 1.17 [facility] HEMATOLOGY PT 13.4 s 12.0 - 01/19 [facility] 14. [facility] Abdomen RUQ Abdomen RUQ EXAM: US ABDOMEN LIMITED 01/19 - [facility] DATE: 01/19/2019 2:23 CDT Read by: Varun Gupta MD Dictated Date/time: 01/19/19 09:35 Electronically Signed by: Varun Gupta MD 01/19/19 09:44 FINAL REPORT INDICATION: - Transaminemia ADDITIONAL INFORMATION: None. COMPARISON: None. TECHNIQUE: Multiplanar grayscale and color Doppler ultrasound of the right upper quadrant. FINDINGS: Liver: Craniocaudal length: 17.8 cm. Echogenicity: Increased Surface nodularity: Normal. Mass (size and location): None. Portal vein: Normal. Questionable thrombus versus artifact left hepatic vein. Echogenic area seen in middle hepatic vein. Bile ducts: Common bile duct diameter: 0.4 cm. Intrahepatic ducts: Prominence of the intrahepatic bile ducts. Gallbladder: Removed Pancreas: Not well seen Spleen: Craniocaudal length: 9.8 x 4.2 x 5.4 cm. Mass or focal lesion (size and location): None. Right kidney: Hydronephrosis: None. Size: 12.9 x 5.7 x 6.4 cm. Echogenicity: Normal. Mass/Stone/Cyst (size and location): Complex cyst seen in superior pole measuring 1.7 x 1.1 x 1.4 cm. Simple cyst in the superior pole measuring 1.3 x 1.5 x 1.1 cm. Ascites: None. IMPRESSION: 1. Complex cyst seen in the superior pole of the right kidney and a dynamic contrast CT or magnetic resonance imaging is recommended for further evaluation if clinically indicated. 2. Possible thrombus versus artifact in the left hepatic and middle hepatic veins which could be resolved with a dynamic contrast CT or magnetic resonance imaging. 3. Status post cholecystectomy and prominence of the intrahepatic bile ducts which could be further evaluated with a magnetic resonance imaging study. 4. Hepatosteatosis and hepatomegaly. Chest 1view Chest 1view EXAM: XR CHEST 1 VIEW 01/18 - [facility] This report was dictated by a Commodity Industry Analyst/Fellow/Physician Press Secretary. I have personally Center reviewed the images as well as the interpretation and agree with the findings. DATE: 01/18/2019 21:14 CDT Read by: Uzma Robbins MD Resident/Fellow/Physician Press Secretary: Uzma Robbins MD Dictated Date/time: 01/18/19 21:39 Electronically Signed by: Jero Marie MD 01/18/19 22:35 FINAL REPORT INDICATION: - chest pain COMPARISON: None. TECHNIQUE: AP chest. UT SECTION: ER FINDINGS: Lines, tubes and hardware: None. Lungs and pleura: Low lung volumes with vascular crowding and scattered atelectasis. No focal consolidation. No pleural effusions or pneumothorax.. Heart and mediastinum: The heart size is normal for technique. The mediastinal contours are normal. Bones: No acute abnormality. IMPRESSION: 1. No acute radiographic abnormality. Vital Signs Vital Sign Value Date Comments Source Systolic (mm Hg) 125 01/21/2019 [facility] Diastolic (mm Hg) 70 01/21/2019 [facility] Systolic (mm Hg) 114 01/21/2019 [facility] Diastolic (mm Hg) 56 01/21/2019 [facility] Systolic (mm Hg) 147 01/21/2019 [facility] Diastolic (mm Hg) 67 01/21/2019 [facility] Temperature Oral (F) 98.3 F 01/21/2019 [facility] Temperature Oral (F) 98.7 F 01/21/2019 [facility] Temperature Oral (F) 98.5 F 01/21/2019 [facility] Respitory Rate 8 01/19/2019 [facility] Respitory Rate 19 01/19/2019 [facility] Respitory Rate 18 01/19/2019 [facility] BMI Calculated 26.14 01/19/2019 [facility] Weight 85 01/19/2019 [facility] Height 180.34 cm 01/19/2019 [facility] Heart Rate 67 01/19/2019 [facility] Encounters Location Location Encounter Encounter Reason Attending ADM DC Status Source Details Type Number For Provider Date Date [facility] [id number] Dashawn 01/19 01/21 [facility] /2018 [facility] Procedures Procedure Code Date Perfomer Comments Source Spinal operation [id number] 10/08/2002 [facility] Cardiac [id number] [facility] catheterization [id number]
--- OUTSIDE RECORDS SUMMARY | 2019-04-02 10:52 | XMS REPORT ---
:1945 [facility] Address [address] [place] [address] Dr. Nava [address] [place] [id number] Care Team Providers Name Role Phone Unavailable Unavailable Unavailable Problems This patient has no known problems. Allergies, Adverse Reactions, Alerts This patient has no known allergies or adverse reactions. Medications This patient has no known medications. Encounters Start End Encounter Admission Attending Care Care Encounter Date/Time Date/Time Type Type Clinicians Facility Department ID 2019-01-18 2019-01-18 Outpatient E [facility] [id number] 21:50:00 21:50:00 2019-01-18 2019-01-18 Inpatient U [facility] [id number] 23:25:00 20:25:00
[2019-04-02] MEDS ORDERED: LIDOCAINE VISCOUS 2% SOLN 15 ML UDC ONE (10:57)
[2019-04-02 11:26] LABS: Urine Blood 2+ (NEG); Urine Glucose NEGATIVE (NEG); Urine Protein 1+ (NEG); Urine Specific Gravity 1.015 (1.005-1.030)
[2019-04-02 12:25] LABS: Urine Amorphous Sediment 3+ /HPF (NONE SEEN); Urine Bacteria <20 /HPF (NONE SEEN); Urine Culture Reflex Order REFLEXED; Urine Mucus 1+ /HPF (NONE SEEN)
--- NOTE | 2019-04-02 12:35 | ER ---
Nurse's Notes [facility] Name: Abdullahi Tian Age: 73 yrs Sex: Male : 1945 Arrival Date: 04/02/2019 Time: 10:31 Bed 4 Private MD: Diagnosis: Retention of urine Presentation: 04/02 10:36 Presenting complaint: Patient states: Unable to urinate since last night. Care prior to aj arrival: None. 10:36 Acuity: MARY LOU 2 aj 10:36 Transition of care: patient was not received from another setting of care. Onset of sv symptoms was April 01, 2019. Initial Sepsis Screen: Does the patient meet any 2 criteria? Temp <36.0*C (96.8*F)) or > 38.3*C (100.9*F). No. Patient's initial sepsis screen is negative. Does the patient have a suspected source of infection? No. Patient's initial sepsis screen is negative. 10:36 Method Of Arrival: Wheelchair sv 11:29 Risk Assessment: Do you want to hurt yourself or someone else? Patient reports no tr5 desire to harm self or others. Triage Assessment: 10:37 General: Appears in no apparent distress. uncomfortable, Behavior is calm, cooperative, aj appropriate for age. Pain: Complains of pain in pelvis. Neuro: Level of Consciousness is awake, alert, obeys commands, Oriented to person, place, time, situation, Appropriate for age. Respiratory: Airway is patent Respiratory effort is even, unlabored, Respiratory pattern is regular, symmetrical. : Reports inability to void, since 2100. Historical: - Allergies: 10:37 No Known Allergies; aj - Immunization history:: Adult Immunizations up to date. - Social history:: Smoking status: Patient/guardian denies using tobacco, never smoked. - Ebola Screening: : No symptoms or risks identified at this time. Screenin:26 Abuse screen: Denies threats or abuse. Nutritional screening: No deficits noted. tr5 Tuberculosis screening: No symptoms or risk factors identified. Fall Risk No fall in past 12 months (0 pts). No secondary diagnosis (0 pts). No IV (0 pts). Ambulatory Aid- None/Bed Rest/Nurse Assist (0 pts). Gait- Normal/Bed Rest/Wheelchair (0 pts) Mental Status- Oriented to own ability (0 pts). Total Sánchez Fall Scale indicates No Risk (0-24 pts). Assessment: 10:55 Reassessment: Bladder scan 433ml pre cath. aj 11:22 General: Appears comfortable, Behavior is calm, cooperative. Pain: Denies pain. Neuro: tr5 Level of Consciousness is awake, alert, obeys commands, Oriented to person, place, time, situation, Lab Tester are equal bilaterally Moves all extremities. Speech is normal, Facial symmetry appears normal. Cardiovascular: Heart tones present Bruits absent Capillary refill < 3 seconds Pulses are all present. Edema is absent. Respiratory: Airway is patent Trachea midline Respiratory effort is even, unlabored, Respiratory pattern is regular, symmetrical, Breath sounds are clear bilaterally. GI: No signs and/or symptoms were reported involving the gastrointestinal system. : Urine is clear, Green in color. Pt states that his urine is green from the Urolene blue antiseptic medication he has been taking. Reports inability to void, since Since pt woke up this morning, he has had the urge to void but is unable to produce any urine on his own. EENT: No signs and/or symptoms were reported regarding the EENT system. Derm: Skin is intact, Skin is pink, warm \T\ dry. Skin temperature is warm. Musculoskeletal: Capillary refill < 3 seconds. Vital Signs: 10:37 BP 148 / 68; Pulse 70; Resp 18; Temp 95.6; Pulse Ox 98% on R/A; Weight 80.74 kg; Height aj 5 ft. 10 in. (177.80 cm); 11:30 BP 142 / 85; Pulse 67; Resp 17; Pulse Ox 100% on R/A; tr5 10:37 Body Mass Index 25.54 (80.74 kg, 177.80 cm) aj 10:37 Patient is diaphoretic aj ED Course: 10:31 Patient arrived in ED. rg4 10:37 Triage completed. aj 10:37 Arm band placed on left wrist. Patient placed in an exam room. aj 10:43 Grey Novak PA is PHCP. jr8 10:43 Abel Portillo MD is Attending Physician. jr8 10:54 Robertson cath inserted, using sterile technique, 16 Fr., by co, balloon inflated, to aj gravity drainage, returned blue urine. Patient tolerated well. 11:01 Giacomo Donis, RN is Primary Nurse. sv 11:16 Urine Microscopic Only Sent. sv 11:28 Patient has correct armband on for positive identification. Placed in gown. Bed in low tr5 position. Call light in reach. 11:53 Urine Dipstick--Ancillary (enter results) Sent. hb 12:09 Awaiting lab results. tr5 Administered Medications: No medications were administered Outcome: 12:34 Discharge ordered by . axel 13:14 Patient left the ED. hb Signatures: Nivia Napoles, RN Aisha Yanez RN Grey Ellis PA PA jr8 Bridgette Mayen RN RN hb Garcia, Rubi rg4 Giacomo Donis, RN RN tr5
--- NOTE | 2019-04-02 12:35 | EDPHYS ---
Physician Documentation [facility] Name: Abdullahi Tian Age: 73 yrs Sex: Male : 1945 Arrival Date: 04/02/2019 Time: 10:31 Bed 4 Private MD: ED Physician Abel Portillo HPI: 04/02 10:54 This 73 yrs old Male presents to ER via Unassigned with complaints of Urinary jr8 Retention. 10:54 The patient presents with urinary symptoms, retention. Onset: The symptoms/episode jr8 began/occurred acutely, last night. Modifying factors: The symptoms are alleviated by nothing, the symptoms are aggravated by urinating. Associated signs and symptoms: The patient has no apparent associated signs or symptoms. Severity of symptoms: At their worst the symptoms were moderate, in the emergency department the symptoms are unchanged. The patient has experienced similar episodes in the past, a few times. The patient has not recently seen a physician. History of prostate cancer and Parkinson's. Stated that he will have acute retention from time to time. Last urination was just after dinner last night. Has not been able to urinate since then . Historical: - Allergies: 10:37 No Known Allergies; aj - Immunization history:: Adult Immunizations up to date. - Social history:: Smoking status: Patient/guardian denies using tobacco, never smoked. - Ebola Screening: : No symptoms or risks identified at this time. ROS: 10:54 Eyes: Negative for injury, pain, redness, and discharge, ENT: Negative for injury, jr8 pain, and discharge, Neck: Negative for injury, pain, and swelling, Cardiovascular: Negative for chest pain, palpitations, and edema, Respiratory: Negative for shortness of breath, cough, wheezing, and pleuritic chest pain, Abdomen/GI: Negative for abdominal pain, nausea, vomiting, diarrhea, and constipation, Back: Negative for injury and pain, MS/Extremity: Negative for injury and deformity, Skin: Negative for injury, rash, and discoloration, Neuro: Negative for headache, weakness, numbness, tingling, and seizure. 10:54 : Positive for urinary symptoms, difficulty urinating, Negative for penile discharge, penile pain, testicular pain Exam: 10:54 Eyes: Pupils equal round and reactive to light, extra-ocular motions intact. Lids and jr8 lashes normal. Conjunctiva and sclera are non-icteric and not injected. Cornea within normal limits. Periorbital areas with no swelling, redness, or edema. ENT: Nares patent. No nasal discharge, no septal abnormalities noted. Tympanic membranes are normal and external auditory canals are clear. Oropharynx with no redness, swelling, or masses, exudates, or evidence of obstruction, uvula midline. Mucous membranes moist. Neck: Trachea midline, no thyromegaly or masses palpated, and no cervical lymphadenopathy. Supple, full range of motion without nuchal rigidity, or vertebral point tenderness. No Meningismus. Cardiovascular: Regular rate and rhythm with a normal S1 and S2. No gallops, murmurs, or rubs. Normal PMI, no JVD. No pulse deficits. Respiratory: Lungs have equal breath sounds bilaterally, clear to auscultation and percussion. No rales, rhonchi or wheezes noted. No increased work of breathing, no retractions or nasal flaring. Abdomen/GI: Soft, non-tender, with normal bowel sounds. No distension or tympany. No guarding or rebound. No evidence of tenderness throughout. Back: No spinal tenderness. No costovertebral tenderness. Full range of motion. Male : Normal genitalia with no discharge or lesions. Skin: Warm, dry with normal turgor. Normal color with no rashes, no lesions, and no evidence of cellulitis. MS/ Extremity: Pulses equal, no cyanosis. Neurovascular intact. Full, normal range of motion. Neuro: Awake and alert, GCS 15, oriented to person, place, time, and situation. Cranial nerves II-XII grossly intact. Motor strength 5/5 in all extremities. Sensory grossly intact. Cerebellar exam normal. Normal gait. Vital Signs: 10:37 BP 148 / 68; Pulse 70; Resp 18; Temp 95.6; Pulse Ox 98% on R/A; Weight 80.74 kg; Height aj 5 ft. 10 in. (177.80 cm); 11:30 BP 142 / 85; Pulse 67; Resp 17; Pulse Ox 100% on R/A; tr5 10:37 Body Mass Index 25.54 (80.74 kg, 177.80 cm) aj 10:37 Patient is diaphoretic aj MDM: 10:43 Patient medically screened. jr8 10:54 Data reviewed: vital signs, nurses notes, and as a result, I will discharge patient. [facility] Data interpreted: Pulse oximetry: on room air is 98 %. Interpretation: normal. Counseling: I had a detailed discussion with the patient and/or guardian regarding: the historical points, exam findings, and any diagnostic results supporting the discharge/admit diagnosis, lab results, the need for outpatient follow up, a urologist, to return to the emergency department if symptoms worsen or persist or if there are any questions or concerns that arise at home. 12:34 ED course: Patient doing much better after turner. Will f/u with his urologist at [facility] . 04/02 11:15 Order name: Urine Microscopic Only; Complete Time: 12:33 [facility] 04/02 11:17 Order name: Urine Dipstick--Ancillary (enter results) mt 04/02 10:52 Order name: Turner; Complete Time: 10:58 [facility] 04/02 10:52 Order name: Bladder Scanner; Complete Time: 10:58 [facility] 04/02 11:28 Order name: Urine Dipstick-Ancillary; Complete Time: 11:28 [facility] 04/02 12:28 Order name: Urine Culture [facility] 04/02 10:56 Order name: Urine Dipstick-Ancillary (obtain specimen); Complete Time: 11:16 [facility] Administered Medications: No medications were administered Disposition: 17:17 Co-signature as Attending Physician, Abel Portillo MD I agree with the assessment and kdr plan of care. Disposition: 04/02/19 12:34 Discharged to Home. Impression: Retention of urine. - Condition is Stable. - Discharge Instructions: Turner Catheter Care, Adult, Acute Urinary Retention, Male. - Medication Reconciliation Form, Thank You Letter, Antibiotic Education, Prescription Opioid Use form. - Follow up: Private Physician; When: 2 - 3 days; Reason: Recheck today's complaints, Continuance of care, Re-evaluation by your physician. - Problem is new. - Symptoms have improved. Signatures: Dispatcher [employer] Aisha Christy RN RN aj Rittger, Kevin, MD MD kdr Roszak, Josh, PA PA [facility] Bridgette Mayen RN RN hb Rodriguez, Tommie, RN RN tr5 Corrections: (The following items were deleted from the chart) 13:14 12:34 04/02/2019 12:34 Discharged to Home. Impression: Retention of urine. Condition is hb Stable. Forms are Medication Reconciliation Form, Thank You Letter, Antibiotic Education, Prescription Opioid Use. Follow up: Private Physician; When: 2 - 3 days; Reason: Recheck today's complaints, Continuance of care, Re-evaluation by your physician. Problem is new. Symptoms have improved. jr8
== END 2019-04-02 13:14 | disposition home or self-care (01) ==
LOC: ER 10:28
DX: R33.9 Retention of urine, unspecified (principal); Z85.46 Personal history of malignant neoplasm of prostate; G20 Parkinson's disease
CPT/HCPCS: 51702; 81003; 81015; 87086; 87088; 99284

== ENCOUNTER 2021-07-12 18:32 | Emergency (ER) | payer OTHER ==
--- NOTE | 2021-07-12 20:42 | RAD REPORT ---
EXAM DESCRIPTION: CT - Head C Spine Cap Wo Con - 07/12/2021 8:20 pm CLINICAL HISTORY: PAIN COMPARISON: No comparisonsNo comparisons TECHNIQUE: Axial [address] head images were obtained. Axial [address] cervical spine images were obtain ed with sagittal and coronal reconstruction images reviewed. Axial 5 mm images of the chest, abdomen and pelvis were obtained. All CT scans are performed using dose optimization technique as appropriate and may include automated exposure control or mA/KV adjustment according to patient size. FINDINGS: No intracranial hemorrhage, mass or edema. No midline shift or abnormal fluid collection. Deep neurostimulator wires are in place. Atrophy and chronic ischemic changes are present. Mastoid ai r cells and paranasal sinuses are clear. No skull fracture. Cervical bodies are normal in height and alignment. No fracture or acute bone finding.No disk space n arrowing.No prevertebral soft tissue thickening or paraspinal mass.Central canal detail is inherently limited on CT imaging.Prominent facet joint degenerative changes are present. Bony foraminal encroac hment changes are present, mild in degree. CT chest shows no pneumothorax, pulmonary contusion or pleural fluid collection. No mediastinal hem atoma and the aorta and pulmonary arteries are unremarkable. No chest will mass or abnormal axillary finding. No displaced rib fracture or other significant bony finding. CT abdomen and pelvis show no injury to solid abdominal viscera. Cholecystectomy clips are present. N o biliary tree dilatation. No acute bowel finding. Renal pelvic dilatation is present without obstruc tion. This is believed be baseline. No free air, free fluid or abnormal stranding. No mass or bulky l ymphadenopathy. No urinary bladder abnormality. No acute bowel finding. Moderate stool volume is note d. No urinary bladder abnormality. Penile prosthesis in place. Lumen reservoir is present in the ant erior left abdomen. Dense aortoiliac atherosclerotic calcifications are present. Infrarenal aorta dilated to 3 cm. No acute bony finding. There are innumerable rounded blastic areas throughout the skeleton. Prostate gland is absent. These are presumed to be prostate metastatic foci but need correlation with history. L5 pars defects are present. Postsurgical hardware is in place at the anterior L5-S1 disc space. IMPRESSION: Atrophy and chronic ischemic changes with no acute CT Head finding. Cervical spine degenerative change with no acute finding. No traumatic injury to the chest. No traumatic injury to the abdomen and pelvis. Innumerable small blastic foci throughout the skeleton presumed to be prostate metastatic disease. Th is needs correlation with history.
[2021-07-12] MEDS ORDERED: DERMABOND SKIN ADHESIVE TOP ONE (20:47)
--- NOTE | 2021-07-12 21:22 | EDPHYS ---
Physician Documentation [facility] Name: Abdullahi Tian Age: 75 yrs Sex: Male : 1945 Arrival Date: 07/12/2021 Time: 18:34 Bed Treatment Private MD: ED Physician Hans Mcmahan HPI: 07/12 20:19 This 75 yrs old Male presents to ER via Wheelchair with complaints of Fall ma2 Injury, Neck Pain, <24hrs Old, Skin Tear(s). 20:19 Details of fall: The patient fell from an upright position. Onset: The symptoms/episode ma2 began/occurred suddenly, 1 hour(s) ago. Severity of symptoms: At their worst the symptoms were mild, in the emergency department the symptoms are unchanged. The patient has not experienced similar symptoms in the past. tripped and fell on face, has bilat knee abrasions and neck pain, has right forenead abrasions and superficial small lac. Historical: - Allergies: 18:44 No Known Allergies; sv - PMHx: 18:44 Parkinson's disease; Cardiac; sv - PSHx: 18:44 Prostate; ureter; sv - Immunization history:: Adult Immunizations up to date. - Social history:: Smoking status: Patient denies any tobacco usage or history of. - Family history:: not pertinent. ROS: 20:19 Constitutional: Negative for fever, chills, and weight loss. ma2 20:19 All other systems are negative. Exam: 20:19 Constitutional: This is a well developed, well nourished patient who is awake, alert, ma2 and in no acute distress. Head/Face: superficial right forehead abrasion/lac, 0.5 cm, with abrasions above it and skin tear, otherwise head is Normocephalic, atraumatic. Eyes: Pupils equal round and reactive to light, extra-ocular motions intact. Lids and lashes normal. Conjunctiva and sclera are non-icteric and not injected. Cornea within normal limits. Periorbital areas with no swelling, redness, or edema. ENT: Nares patent. No nasal discharge, no septal abnormalities noted. Tympanic membranes are normal and external auditory canals are clear. Oropharynx with no redness, swelling, or masses, exudates, or evidence of obstruction, uvula midline. Mucous membranes moist. Neck: Trachea midline, no thyromegaly or masses palpated, and no cervical lymphadenopathy. Supple, full range of motion without nuchal rigidity, or vertebral point tenderness. No Meningismus. Chest/axilla: Normal chest wall appearance and motion. Nontender with no deformity. No lesions are appreciated. Cardiovascular: Regular rate and rhythm with a normal S1 and S2. No gallops, murmurs, or rubs. Normal PMI, no JVD. No pulse deficits. Respiratory: Lungs have equal breath sounds bilaterally, clear to auscultation and percussion. No rales, rhonchi or wheezes noted. No increased work of breathing, no retractions or nasal flaring. Abdomen/GI: Soft, non-tender, with normal bowel sounds. No distension or tympany. No guarding or rebound. No evidence of tenderness throughout. MS/ Extremity: bilat knee abrasions superficial, otherwise both joints are with full rom and Pulses equal, no cyanosis. Neurovascular intact. Full, normal range of motion. Neuro: Awake and alert, GCS 15, oriented to person, place, time, and situation. Cranial nerves II-XII grossly intact. Motor strength 5/5 in all extremities. Sensory grossly intact. Cerebellar exam normal. Normal gait. Vital Signs: 18:44 Weight 89.36 kg; Height 5 ft. 11 in. (180.34 cm); Pain 2/10; sv 18:47 BP 142 / 88; Pulse 57; Resp 19; Temp 97.8(O); Pulse Ox 98% on R/A; oh 19:45 BP 138 / 82; Pulse 57; Resp 18; Pulse Ox 99% on R/A; lh3 18:44 Body Mass Index 27.48 (89.36 kg, 180.34 cm) sv Laceration: 21:20 Wound Repair of 1cm ( 0.4in ) subcutaneous laceration to right eye. Linear shaped.. ma2 Distal neuro/vascular/tendon intact. Skin closed with 1-0 Adhesive skin closure using simple sutures and sterile technique. Dressed with 4x4's. Patient tolerated well. MDM: 19:14 Patient medically screened. ma2 20:21 Differential diagnosis: abrasion, closed head injury, contusion, fracture. ma2 21:20 Data reviewed: vital signs, nurses notes. Counseling: I had a detailed discussion with ma2 the patient and/or guardian regarding: the historical points, exam findings, and any diagnostic results supporting the discharge/admit diagnosis, the presence of at least one elevated blood pressure reading (>120/80) during this emergency department visit, the need for outpatient follow up. Response to treatment: the patient's symptoms have markedly improved after treatment. 07/12 19:42 Order name: CT Traumagram (Head C Spine CAP wo con); Complete Time: 20:55 ma2 07/12 19:42 Order name: XRAY Knee RIGHT 2 view ma2 07/12 19:42 Order name: Knee Left 2 View XRAY ma2 07/12 19:47 Order name: Wound Care: with iodine bovidone, ; Complete Time: 20:41 ma2 07/12 19:47 Order name: Wound dressing: with antibiotics ointment; Complete Time: 20:41 ma2 07/12 19:47 Order name: Dermabond; Complete Time: 20:40 ma2 07/12 19:47 Order name: Dressing - Wound; Complete Time: 20:40 ma2 07/12 19:47 Order name: Gloves, Sterile; Complete Time: 20:40 ma2 07/12 19:47 Order name: Setup Suture Tray; Complete Time: 20:40 ma2 Administered Medications: 21:35 Drug: Tetanus-Diphtheria Toxoid Adult 0.5 ml {[employer]ight [employer]: [employer]. Exp: dc2 12/23/2022. Lot #: [id number]. } Route: IM; Site: left deltoid; 21:35 Follow up: Response: No adverse reaction dc2 Disposition Summary: 07/12/21 21:21 Discharge Ordered Location: Home ma2 Condition: Stable ma2 Diagnosis - Abdominal pain, unspecified ma2 Followup: ma2 - With: Private Physician - When: Tomorrow - Reason: If symptoms return, Continuance of care Discharge Instructions: - Discharge Summary Sheet ma2 Forms: - Medication Reconciliation Form ma2 - Thank You Letter ma2 - Antibiotic Education ma2 - Prescription Opioid Use ma2 Prescriptions: - Diclofenac Sodium 75 mg Oral Tablet Sustained Release - take 1 tablet by ORAL route 2 times per day; 30 tablet; Refills: 0, Product ma2 Selection Permitted Signatures: Dispatcher [facility] Nivia Tariq RN RN sv Hans Mcmahan MD MD ma2 Codi Ochoa, MAK RN dc2
--- NOTE | 2021-07-12 21:22 | ER ---
Nurse's Notes [facility] Name: Abdullahi Tian Age: 75 yrs Sex: Male : 1945 Arrival Date: 07/12/2021 Time: 18:34 Bed Treatment Private MD: Diagnosis: Abdominal pain, unspecified Presentation: 07/12 18:42 Chief complaint: Patient states: s/p fall outside his house, was trying to stop his sv dogs and fell face first into the sidewalk. Abrasions noted to R face, elbow, knee and c/o neck pain. C-collar placed. Denies LOC. Pt is on Brilenta. Care prior to arrival: None. Mechanism of Injury: Fall from standing position. Trauma event details: Injury occurred in the [facility], Injury occurred: at home. Injury occurred: July 12, 2021. 18:42 Acuity: MARY LOU 2 sv 18:42 Method Of Arrival: Wheelchair sv 18:44 Coronavirus screen: Vaccine status: Patient reports receiving the 2nd dose of the covid sv vaccine. Patient reports receiving the 1st dose of the Covid vaccine. Client denies travel out of the [place] in the last 14 days. Ebola Screen: No symptoms or risks identified at this time. Risk Assessment: Do you want to hurt yourself or someone else? Patient reports no desire to harm self or others. Onset of symptoms was July 12, 2021. Trauma Activation: Alert Physician: ED Physician; Name: Dr Weinberg; Notified At: 18:43; Arrived At: Physician: General Surgeon; Name: ; Notified At: 18:43; Arrived At: Physician: Radiology; Name: ; Notified At: 18:43; Arrived At: Physician: Respiratory; Name: ; Notified At: 18:43; Arrived At: Physician: Lab; Name: ; Notified At: 18:43; Arrived At: Historical: - Allergies: 18:44 No Known Allergies; sv - PMHx: 18:44 Parkinson's disease; Cardiac; sv - PSHx: 18:44 Prostate; ureter; sv - Immunization history:: Adult Immunizations up to date. - Social history:: Smoking status: Patient denies any tobacco usage or history of. - Family history:: not pertinent. Screenin:50 Abuse screen: Denies injuries from another. Nutritional screening: No deficits noted. oh Tuberculosis screening: No symptoms or risk factors identified. Fall Risk Gait-. Primary Survey: 18:45 NO uncontrolled hemorrhage observed. A: The patient is alert. Airway: patent, No sv supplemental oxygen in use on arrival. Oral cavity: clear. Breathing/Chest: Respiratory pattern: regular, Respiratory effort: spontaneous, unlabored, Chest inspection: symmetrical rise and fall of the chest. Circulation: Skin color: pink, Skin temperature: warm, dry. Disability Alert. Exposure/Environment: All clothing and personal items were removed. Forensic evidence collection is not deemed to be indicated at this time. Items placed in patient belonging bag. Assessment: 18:48 General: Appears uncomfortable, Behavior is calm, cooperative, appropriate for age. tc5 Pain: Complains of pain in posterior cervical area. 18:50 Neuro: No deficits noted. Cardiovascular: Reports on blood thinner, brilenta. tc5 Respiratory: No deficits noted. GI: No deficits noted. Derm: Reports was taking his large dogs for a walk when they made him fall, pt denies LOC, has abrasions to the rt side of forehead, RUL and RLE, small abrasion to the left knee. Musculoskeletal: Reports neck pain, placed in a c-collar in triage. 19:12 Reassessment: pt waiting to be seen, endorsed to night rn. oh 19:44 Reassessment: Patient report trying to stop the dogs from going outside while he was lh3 checking the mail and got tangled up with them and fell on the sidewalk, has laceration on right brow line and abrasion on right knee. Pt C/O neck pain. Vital Signs: 18:44 Weight 89.36 kg; Height 5 ft. 11 in. (180.34 cm); Pain 2/10; sv 18:47 BP 142 / 88; Pulse 57; Resp 19; Temp 97.8(O); Pulse Ox 98% on R/A; oh 19:45 BP 138 / 82; Pulse 57; Resp 18; Pulse Ox 99% on R/A; lh3 18:44 Body Mass Index 27.48 (89.36 kg, 180.34 cm) sv ED Course: 18:34 Patient arrived in ED. as 18:44 Triage completed. sv 18:44 Arm band placed on. sv 18:46 Shawn Krueger, RN is Primary Nurse. oh 19:14 Hans Mcmahan MD is Attending Physician. ma2 19:43 Patient has correct armband on for positive identification. Placed in gown. Bed in low lh3 position. Side rails up X 1. Side rails up X2. Adult w/ patient. 19:43 Pulse ox on. NIBP on. Door closed. Verbal reassurance given. lh3 20:20 CT Traumagram (Head C Spine CAP wo con) In Process Unspecified. EDMS 20:34 XRAY Knee RIGHT 2 view In Process Unspecified. EDMS 20:34 Knee Left 2 View XRAY In Process Unspecified. 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 Exp: dc2 12/23/2022. Lot #: [id number]. } Route: IM; Site: left deltoid; 21:35 Follow up: Response: No adverse reaction dc2 Outcome: 21:21 Discharge ordered by . ma2 21:45 Patient left the ED. mw2 Signatures: Dispatcher [employer] EDMS Nivia Napoles RN MAK Terrie Trammell as Hans Mcmahan MD MD va2 Grace Preston mw2 Maureen Atkins RN RN 3 Don, MAK Kincaid RN wy2 Shawn Krueger, RN RN nj Jessika Harley RN RN 5 Corrections: (The following items were deleted from the chart) 18:50 18:47 BP 142 / 88; Pulse 57bpm; Resp 19bpm; Pulse Ox 98% RA; Temp 98.1F; oh oh
[2021-07-12] MEDS ORDERED: TETANUS & DIPHTHERIA TOX,ADULT 0.5 ML VIAL ONE (21:33)
--- NOTE | 2021-07-12 21:53 | RAD REPORT ---
EXAM DESCRIPTION: RAD - Knee Right 2 View - 07/12/2021 8:36 pm CLINICAL HISTORY: PAIN COMPARISON: No comparisons FINDINGS: No fracture, dislocation or periosteal reaction.No large joint effusion is seen. Degenerat becky spurring changes are present along the tibial spine and intercondylar notch. No joint space narro wing. No foreign body or soft tissue abnormality. IMPRESSION: Degenerative change without an acute bone process identifiable. Clinical concerns for internal derangement or occult bony injury could be further assessed with MR imaging.
[2021-07-12 21:54] VITALS: TEMP 97.8
--- NOTE | 2021-07-12 21:55 | RAD REPORT ---
EXAM DESCRIPTION: RAD - Knee Left 2 View - 07/12/2021 8:36 pm CLINICAL HISTORY: PAIN COMPARISON: Knee Right 2 View dated 07/12/2021 FINDINGS: No fracture, dislocation or periosteal reaction.No joint effusion seen. No joint space nidia rowing. Shortening of the proximal fibula is seen due to be normal developmental variant. No soft tis marsha abnormality. IMPRESSION: Negative left knee for acute bone or joint finding. Clinical concerns for internal derangement or occult bony injury could be further assessed with MR im aging.
[2021-07-12 21:56] VITALS: BP 138/82; O2SAT 99
== END 2021-07-12 21:45 | disposition home or self-care (01) ==
LOC: ER 18:32
PROC: 0JQ10ZZ Repair Face Subcutaneous Tissue and Fascia, Open Approach (ICD-10-PCS; principal; 2021-07-12)
DX: S01.81XA Laceration without foreign body of other part of head, initial encounter (principal); R10.9 Unspecified abdominal pain; W01.0XXA Fall on same level from slipping, tripping and stumbling without subsequent striking against object, initial encounter; Z23 Encounter for immunization; G20 Parkinson's disease
CPT/HCPCS: 70450; 71250; 72125; 90471; 90714; 99283; G0390